=== PATIENT | male | born 1945 | race African-American/Black ===

== ENCOUNTER 2017-06-02 17:05 | Observation (INO) | payer MEDICARE, MEDICAID ==
[2017-06-02] MEDS ORDERED: NORMAL SALINE 1000 ML 1,000 ML IV ONE (17:54)
--- NOTE | 2017-06-02 18:31 | RADIOLOGY REPORT (SQ) ---
EXAM DESCRIPTION: CHEST SINGLE VIEW COMPLETED DATE/TIME: 06/02/2017 6:23 pm REASON FOR STUDY: syncope COMPARISON: None. EXAM PARAMETERS: NUMBER OF VIEWS: One view. TECHNIQUE: Single frontal radiographic view of the chest acquired. RADIATION DOSE: NA LIMITATIONS: None. FINDINGS: LUNGS AND PLEURA: No opacities, masses or pneumothorax. No pleural effusion. MEDIASTINUM AND HILAR STRUCTURES: No masses. Contour normal. HEART AND VASCULAR STRUCTURES: Heart normal in size. Normal vasculature. BONES: No acute findings. HARDWARE: None in the chest. OTHER: No other significant finding. IMPRESSION: NO ACUTE RADIOGRAPHIC FINDING IN THE CHEST. TECHNICAL DOCUMENTATION: JOB ID: [id number]
--- NOTE | 2017-06-02 18:39 | ER Document Report ---
ED Syncope and Near Syncope - General Mode of Arrival: Ambulatory Information source: Patient <ALEXANDEROMER - Last Filed: 06/02/17 18:35> <KATIA LÓPEZ - Last Filed: 06/02/17 21:12> - General Chief Complaint: Syncope Stated Complaint: FAINTING Time Seen by Provider: 06/02/17 17:37 Notes: Patient is a 71-year-old male who presents to the emergency department today secondary to a syncopal episode that occurred prior to arrival. According to family at bedside, the patient was sitting on his scooter waiting for their children to get off the bus when the patient "grabbed his chest, his eyes rolled back, and he went limp". Patient denies any chest pain currently or shortness of breath. (OMER MUNOZ) - Related Data Allergies/Adverse Reactions: No Known Allergies Allergy (Unverified 06/02/17 17:22) Past Medical History - General Information source: [facility] Records - Social History Smoking Status: Never Smoker Cigarette use (# per day): No Chew tobacco use (# tins/day): No Frequency of alcohol use: None Drug Abuse: None Lives with: Family Family History: Reviewed & Not Pertinent - Past Medical History Cardiac Medical History: Reports: Hx Congestive Heart Failure, Hx Hypercholesterolemia, Hx Hypertension Surgical Hx: Negative <OMER MUNOZ - Last Filed: 06/02/17 18:35> Review of Systems - Review of Systems Constitutional: No symptoms reported EENT: No symptoms reported Cardiovascular: See HPI, Syncope. denies: Chest pain Respiratory: denies: Short of breath Gastrointestinal: No symptoms reported Genitourinary: No symptoms reported Male Genitourinary: No symptoms reported Musculoskeletal: No symptoms reported Skin: No symptoms reported Hematologic/Lymphatic: No symptoms reported Neurological/Psychological: No symptoms reported -: Yes All other systems reviewed and negative <OMER MUNOZ - Last Filed: 06/02/17 18:35> Physical Exam - Vital signs Interpretation: Hypotensive - General General appearance: Appears well, Alert In distress: None - HEENT Head: Normocephalic, Atraumatic Eyes: Normal Pupils: PERRL Mucous membranes: Dry - Respiratory Respiratory status: No respiratory distress Chest status: Nontender Breath sounds: Normal Chest palpation: Normal - Cardiovascular Rhythm: Regular Heart sounds: Normal auscultation Murmur: No - Abdominal Inspection: Normal Distension: No distension Bowel sounds: Normal Tenderness: Nontender Organomegaly: No organomegaly - Back Back: Normal, Nontender - Extremities General upper extremity: Normal inspection, Nontender, Normal color, Normal ROM , Normal temperature General lower extremity: Normal inspection, Nontender, Normal color, Normal ROM , Normal temperature, Normal weight bearing. No: Miranda's sign - Neurological Neuro grossly intact: Yes Cognition: Normal Orientation: AAOx4 [place] Coma Scale Eye Opening: Spontaneous [place] Coma Scale Verbal: Oriented [place] Coma Scale Motor: Obeys Commands Brian Coma Scale Total: 15 Speech: Normal Motor strength normal: LUE, RUE, LLE, RLE Sensory: Normal - Psychological Associated symptoms: Normal affect, Normal mood - Skin Skin Temperature: Warm Skin Moisture: Dry Skin Color: Normal <KATIA LÓPEZ - Last Filed: 06/02/17 21:12> - Vital signs Vitals: Temp Pulse Resp BP Pulse Ox 98.7 F 61 18 108/48 L 98 06/02/17 17:21 06/02/17 17:21 06/02/17 17:21 06/02/17 17:21 06/02/17 17:21 Course <OMER MUNOZ - Last Filed: 06/02/17 18:35> - Laboratory Result Diagrams: 06/02/17 19:40 06/02/17 19:40 - Diagnostic Test Radiology reviewed: Reports reviewed - EKG Interpretation by Me EKG shows normal: Sinus rhythm Rate: Normal Rhythm: NSR <KATIA LÓPEZ - Last Filed: 06/02/17 21:12> - Re-evaluation Re-evalutation: 06/02/17 21:11 Patient is a 71-year-old male who presents after an episode of syncope at home. Patient was describing his chest and then passing out. Patient has no complaints at all. No pain anywhere. Feels better at this time. Given account witnesses, patient will be admitted for syncope workup. Patient has been discussed with the hospitalist service. Stable at time of admission. No complaints at this time. (KATIA LÓPEZ) - Vital Signs Vital signs: Temp Pulse Resp BP Pulse Ox 98.7 F 61 18 108/48 L 98 06/02/17 17:21 06/02/17 17:21 06/02/17 17:21 06/02/17 17:21 06/02/17 17:21 - Laboratory Laboratory results interpreted by me: 06/02/17 06/02/17 19:40 19:40 RDW 15.6 H BUN 22 H Creatinine 1.37 H Est GFR (Non-Af Amer) 51 L Discharge <OMER MUNOZ - Last Filed: 06/02/17 18:35> - Discharge Admitting Provider: Hospitalist Unit Admitted: Telemetry <KATIA LÓPEZ - Last Filed: 06/02/17 21:12> - Discharge Clinical Impression: Syncope and collapse Condition: Stable Disposition: ADMITTED OBSERVATION Scribe Attestation: 06/02/17 21:11 I personally performed the services described in the documentation, reviewed and edited the documentation which was dictated to the scribe in my presence, and it accurately records my words and actions. (KATIA LÓPEZ) Scribe Documentation - Scribe Written by Scribe:: Hadley Harper, 06/02/2017 1838 acting as scribe for :: Cindy <OMER MUNOZ - Last Filed: 06/02/17 18:35>
[2017-06-02 19:58] LABS: ABSOLUTE BASOPHILS # (AUTO) 0.1 10^3/uL (0.0-0.2); ABSOLUTE EOSINOPHILS # (AUTO) 0.2 10^3/uL (0.0-0.6); ABSOLUTE LYMPHOCYTES (AUTO) 2.2 10^3/uL (0.5-4.7); ABSOLUTE MONOCYTES (AUTO) 0.5 10^3/uL (0.1-1.4); ABSOLUTE NEUT (AUTO) 6.9 10^3/uL (1.7-8.2); BASOPHILS % (AUTO) 0.8 % (0-2); HEMATOCRIT 43.5 % (37.9-51.0); HEMOGLOBIN 14.9 g/dL (13.5-17.0); HGB HCT DIFFERENCE 1.2; LYMPHOCYTES % (AUTO) 22.6 % (13-45); MEAN CORPUSCULAR HEMOGLOBIN 29.9 pg (27.0-33.4); MEAN CORPUSCULAR HGB CONC 34.2 g/dL (32.0-36.0); MEAN CORPUSCULAR VOLUME 87 fl (80-97); MONOCYTES % (AUTO) 4.9 % (3-13); RED BLOOD COUNT 4.97 10^6/uL (4.35-5.55); RED CELL DISTRIBUTION WIDTH 15.6 % (11.5-14.0); SEGMENTED NEUTROPHILS % (AUTO) 69.7 % (42-78); WHITE BLOOD COUNT 9.8 10^3/uL (4.0-10.5)
[2017-06-02 20:19] LABS: ALANINE AMINOTRANSFERASE 29 U/L (21-72); ALBUMIN 3.7 g/dL (3.5-5.0); ALKALINE PHOSPHATASE 86 U/L (38-126); ANION GAP 13 (5-19); ASPARTATE AMINO TRANSFERASE 21 U/L (17-59); BILIRUBIN,DIRECT 0.4 mg/dL (0.0-0.4); BILIRUBIN,TOTAL 0.5 mg/dL (0.2-1.3); BLOOD UREA NITROGEN 22 mg/dL (7-20); CALCIUM 9.8 mg/dL (8.4-10.2); CARBON DIOXIDE 23 mmol/L (22-30); CHLORIDE 107 mmol/L (98-107); CREATINE KINASE 132 U/L (55-170); CREATININE RESULT 1.37 mg/dL (0.52-1.25); GLUCOSE 83 mg/dL (75-110); POTASSIUM 4.6 mmol/L (3.6-5.0); SODIUM 142.5 mmol/L (137-145); TOTAL PROTEIN 7.4 g/dL (6.3-8.2)
[2017-06-02 20:31] LABS: CREATINE KINASE MB 1.57 ng/mL (<4.55); TROPONIN I 0.019 ng/mL
[2017-06-02 21:08] LABS: APPEARANCE,URINE CLEAR; BILIRUBIN,URINE NEGATIVE (NEGATIVE); GLUCOSE, URINE NEGATIVE (NEGATIVE); KETONES,URINE NEGATIVE (NEGATIVE); LEUKOCYTE ESTERASE,URINE NEGATIVE (NEGATIVE); NITRITE,URINE NEGATIVE (NEGATIVE); PROTEIN,URINE NEGATIVE (NEGATIVE); URINE SPECIFIC GRAVITY 1.015; UROBILINOGEN,URINE NEGATIVE mg/dL (<2.0)
[2017-06-02] MEDS ORDERED: PROMETHAZINE HCL 25 MG TABLET PO PRN (21:14)
[2017-06-02] MEDS ORDERED: ACETAMINOPHEN 325 MG TABLET PO PRN (21:14)
[2017-06-02 23:03] LABS: ADD ON TESTING BLD IN LAB ACKNOWLEDGE
[2017-06-02 23:23] LABS: MAGNESIUM 2.1 mg/dL (1.6-2.3)
[2017-06-02 23:24] LABS: ALCOHOL < 10 mg/dL (NONE DETECTED)
[2017-06-03] MEDS ORDERED: DEXTROSE 50%-WATER 25 GM/50 ML DISP.SYRIN IV PRN ×2 (04:43)
[2017-06-03] MEDS ORDERED: GLUCAGON,HUMAN RECOMB 1 MG INJ IM PRN (04:43)
[2017-06-03] MEDS ORDERED: INSULIN LISPRO 100 UNIT/ML 3 ML VIAL SUBCUT PRN (04:43)
[2017-06-03] MEDS ORDERED: DEXTROSE 40% GEL 15 GM TUBE PO PRN ×2 (04:43)
[2017-06-03] MEDS ORDERED: NORMAL SALINE 1000 ML 1,000 ML IV PRN (04:49)
--- NOTE | 2017-06-03 05:05 | PDOC H&P ---
History of Present Illness Admission Date/PCP: 06/02/17 21:34 Primary care provider: Uncertain; patient just saw the provider 2 or 3 days ago for the first time. Patient complains of: Syncope History of Present Illness: RONI MANN is a 71 year old morbidly obese -E[place]ian male, with underlying hypertension, obstructive sleep apnea, without home O2, with pressure setting of 14, congestive heart failure, uncertain if systolic and/or diastolic, hyperlipidemia, type 2 diabetes mellitus, mild reflux, arthritis, mild depression, without suicidal or homicidal ideation, and underlying prostate cancer, currently being followed with serial PSA who presents to the emergency room for evaluation of first syncopal episode. Patient has been discussed with emergency room physician who evaluated the patient. Was sitting on his scooter outside waiting for grandchild to get off the bus. Grabbed his chest, eyes rolled back, and he "went limp." No fecal or urinary incontinence. No biting of the tongue. No known seizure disorder. Witnessed by 1 of his daughters; another daughter is at his bedside, with patient's approval. The witnessing daughter is not present. No prior such episodes. Prior to the above episode, he was in his usual state of health, with no complaints of nausea vomiting, fever or chills, diarrhea or dysuria. No headache chest or abdominal pain. Feels back to his usual self at the present time also. No recent change in his medications. Long-term noncompliance with his medications. Denies use of alcohol tobacco or illicit drugs. Dictation via voice recognition software. Laboratory results are listed in [facility] and are reviewed. No prior labs available for comparison. X-ray summary results are listed below, with full report(s) reviewed. EKG reviewed. No old EKG available for comparison. Social history/personal habits: . Lives with daughter. Unemployed. Personal habits as noted above. No known drug allergies. Home medications initially autopopulated into [facility] [employer] may not accurately reflect patient's true medications, dosages, and/or frequencies. technical services representative to reconcile medications. Unfortunately, patient not certain of all medications/dosages/frequencies. REVIEW OF SYSTEMS: Constitutional: No fever or chills. Eyes: Wears glasses. ENT: No swallowing problems or complaints. Denies hearing loss. Pulmonary: No current complaints. Cardiovascular: See history and present illness. Gastrointestinal: No current complaints, including nausea or vomiting. Skin: No current complaints, including rashes. Hematologic: Denies easy bruising. Neurologic: See history and present illness. Musculoskeletal: Joint pain from arthritis. Psychiatric: Mild occasional depression. Endocrine: No current complaints, including polyuria. Genitourinary: No current complaints, including dysuria. PHYSICAL EXAMINATION: 5 feet 9-1/2 inches tall. 125.6 kg. BMI 40.3 kg/m. Temperature 97.5. Pulse 64 and regular. Blood pressure 145/89. Respirations are 16 and unlabored. 96 % saturation on room air. Morbidly obese somewhat chronically ill-appearing -[place]ian male who nevertheless appears perhaps a bit younger than his stated age. Initially asleep, but awakens easily. Pleasant alert and cooperative. Mildly anxious, without agitation. Daughter Alessandra Mann is present at his side; patient approves. Skin is warm and dry. No grossly obvious evidence of rash in areas of skin examined. No subcutaneous nodules palpated. ENT: Hearing grossly normal to normal conversation. Tongue midline on protrusion pink and slightly moist. Poor dentition. Eyes: No scleral icterus. Pupils equal and reactive to light at 4 mm. [place] conjunctivae. Neck is supple and nontender to gentle active range of motion and palpation. Midline trachea. No palpable thyroid nodule mass enlargement or tenderness. Lymphatic: No palpable cervical or clavicular nodes. Neck and lymphatic exams limited by patient body habitus. Psychiatric: Reasonable insight into acute and chronic medical issues. Oriented to time location and why here. Lungs: Auscultation reveals clear and equal breath sounds bilaterally. No use of accessory respiratory muscles. Cardiovascular: Heart regular rate and rhythm, without gallop murmur or rub. No carotid or abdominal aortic bruits. No ankle or pedal edema. Palpable dorsalis pedis pulses. Abdomen:soft obese nontender with positive bowel sounds. Unable to adequately evaluate abdomen for masses or organomegaly due to body habitus. Extremities: Feet are warm and dry. No calf tenderness to compression. No grossly obvious visual evidence of calf swelling. Gentle manipulation of lower extremities fails to reveal any obvious evidence of injury or instability to knees hips or ankles. Neurologic: Moves upper extremities grossly normally. Patellar reflexes absent. Absent Babinski. Light touch is intact at feet. Dorsiflexion and plantarflexion of feet 5 / 5 and symmetric. Past Medical History Cardiac Medical History: Reports: Congestive Heart Failure, Hyperlipidema, Hypertension Denies: Atrial Fibrillation, DVT, Pulmonary Embolism Pulmonary Medical History: Reports: Sleep Apnea Denies: Asthma, Chronic Obstructive Pulmonary Disease (COPD) Neurological Medical History: Denies: Hemorrhagic CVA, Ischemic CVA, Seizures Endocrine Medical History: Reports: Diabetes Mellitus Type 2 Denies: Diabetes Mellitus Type 1, Hyperthyroidism, Hypothyroidism Malignancy Medical History: Reports: Other - Prostate GI Medical History: Reports: Gastroesophageal Reflux Disease Denies: Hepatitis, Peptic Ulcer Disease Musculoskeltal Medical History: Reports: Arthritis Psychiatric Medical History: Reports: Depression Denies: Alcohol Dependency, General Anxiety Disorder, Substance Abuse, Tobacco Dependency Infectious Medical History: Denies: Hepatitis B, Hepatitis C Past Surgical History Past Surgical History: Reports: Orthopedic Surgery - ankle, elbow Social History Information Source: Patient, Emergency Med Personnel, [facility] Records Lives with: Family Smoking Status: Unknown if Ever Smoked Frequency of Alcohol Use: None Hx Recreational Drug Use: No Drugs: None Hx Prescription Drug Abuse: No - Advance Directive Resuscitation Status: Full Code Surrogate healthcare decision maker:: David Acosta Family History Family History: Reviewed & Not Pertinent Parental Family History Reviewed: Yes - Father of ruptured brain aneurysm; mother after a stroke Children Family History Reviewed: Yes - Daughter with thyroid disease. Sibling(s) Family History Reviewed.: Yes - Half-sister Medication/Allergy Home Medications: Aspirin [Ecotrin] 81 mg PO DAILY 06/03/17 Carvedilol [Coreg 25 mg Tablet] 25 mg PO DAILY 06/03/17 Citalopram Hydrobromide [Celexa 40 mg Tablet] 40 mg PO DAILY 06/03/17 Donepezil HCl [Aricept 5 mg Tablet] 5 mg PO DAILY 06/03/17 Hydralazine HCl [Apresoline 50 mg Tablet] 50 mg PO TID 06/03/17 Hydrochlorothiazide [Hydrodiuril 25 mg Tablet] 25 mg PO QAM 06/03/17 Isosorbide Dinitrate [Isordil Titradose 20 Mg Tablet] 20 mg PO TID 06/03/17 Lovastatin [Altoprev] 40 mg PO DAILY 06/03/17 [place]-3 Fatty Acids/Fish Oil [Fish Oil 1,000 mg Capsule] 1 cap PO Q8 06/03/17 Omeprazole 20 mg PO DAILY 06/03/17 Spironolactone [Aldactone 25 mg Tablet] 25 mg PO BID 06/03/17 Tamsulosin HCl [Flomax 0.4 mg Cap.sr] 0.4 mg PO QHS 06/03/17 Allergies/Adverse Reactions: No Known Allergies Allergy (Unverified 06/02/17 17:22) Physical Exam Vital Signs: Temp Pulse Resp BP Pulse Ox 97.5 F 64 16 145/89 H 98 06/03/17 01:06 06/03/17 01:06 06/03/17 01:06 06/03/17 01:06 06/03/17 01:06 Intake & Output 06/02/17 06/03/17 06/04/17 00:59 00:59 00:59 Weight 125.6 kg Results Laboratory Results: 06/02/17 06/02/17 06/02/17 22:50 22:50 22:50 Lactic Acid 0.8 Magnesium 2.1 TSH 1.31 06/03/17 01:18 Troponin I 0.013 Impressions: Chest X-Ray 06/02/17 00:00 IMPRESSION: NO ACUTE RADIOGRAPHIC FINDING IN THE CHEST. Assessment & Plan - Diagnosis (1) Syncope and collapse Is this a current diagnosis for this admission?: Yes Plan: Uncertain etiology at this point, although patient does state his p.o. intake has been less than normal over the last 2 days. 1 L of IV fluid at 100/h. Serial troponins. Orthostatic vital signs every 4 hours while awake, starting at 7 AM this morning. I have strongly encouraged patient not to get out of bed without notifying staff , to avoid a fall with injury. Knee high SCDs for DVT prophylaxis, along with subcutaneous heparin. Impression and plans were discussed with patient and daughter, both of whom concur. Time spent in evaluation and management of patient: 72 minutes. (2) CHF (congestive heart failure) Qualifiers: Congestive heart failure type: unspecified congestive heart failure type Congestive heart failure chronicity: chronic Qualified Code(s): I50.9 - Heart failure, unspecified Is this a current diagnosis for this admission?: Yes Plan: Resume home medications as appropriate once these have been determined and reviewed. (3) Diabetes mellitus type 2 in obese Is this a current diagnosis for this admission?: Yes Plan: Diabetic cardiac diet. Accu-Cheks with appropriate sliding scale coverage. Resume home medications as appropriate once these have been determined and reviewed. (4) HLD (hyperlipidemia) Qualifiers: Hyperlipidemia type: unspecified Qualified Code(s): E78.5 - Hyperlipidemia , unspecified Is this a current diagnosis for this admission?: Yes Plan: Lipid panel pending. Resume home medications as appropriate once these have been determined and reviewed. (5) HTN (hypertension) Qualifiers: Hypertension type: essential hypertension Qualified Code(s): I10 - Essential (primary) hypertension Is this a current diagnosis for this admission?: Yes Plan: Resume home medications as appropriate once these have been determined and reviewed. (6) DEIDRE (obstructive sleep apnea) Is this a current diagnosis for this admission?: Yes Plan: CPAP nightly - Time Time Spent: Greater than 70 Minutes Medications reviewed and adjusted accordingly: No - Patient uncertain of medications. Anticipated discharge: Home Within: within 24 hours
[2017-06-03 08:32] LABS: ANION GAP 11 (5-19); BLOOD UREA NITROGEN 20 mg/dL (7-20); CALCIUM 9.8 mg/dL (8.4-10.2); CARBON DIOXIDE 29 mmol/L (22-30); CHLORIDE 104 mmol/L (98-107); CHOLESTEROL 174.57 mg/dL (0-200); Direct HDL 37 mg/dL (>40); GLUCOSE 76 mg/dL (75-110); POTASSIUM 4.1 mmol/L (3.6-5.0); SODIUM 143.9 mmol/L (137-145); TRIGLYCERIDES 128 mg/dL (<150)
[2017-06-03 08:43] LABS: DIRECT LDL 100 mg/dL (<100)
[2017-06-03] MEDS ORDERED: PROMETHAZINE HCL 25 MG TABLET PO PRN (10:00)
[2017-06-03] MEDS: HEPARIN SOD (PORCINE) 5,000 UNIT/ML 1 ML SYRINGE SUBCUT SCH ×3 (12:34→22:30)
[2017-06-03] MEDS: DOCUSATE SODIUM 100 MG CAPSULE PO SCH ×2 (12:34→17:24)
--- NOTE | 2017-06-03 14:41 | RADIOLOGY REPORT (SQ) ---
EXAM DESCRIPTION: CAROTID DOPPLER COMPLETED DATE/TIME: 06/03/2017 2:21 pm REASON FOR STUDY: Syncope, dizziness E78.5 HYPERLIPIDEMIA, UNSPECIFIED R55 SYNCOPE AND COLLAPSE COMPARISON: None. TECHNIQUE: Grayscale ultrasound, Doppler velocity and spectra, and color Doppler images acquired of the extra-cranial carotid and vertebral arteries. Images stored on PACS. LIMITATIONS: Right internal carotid and external carotid not able to be seen. FINDINGS: RIGHT CAROTID CCA Velocities: Within normal limits. ICA Velocities Peak systolic not seen m/s. End diastolic not seen m/s. Proximal ICA/CCA peak systolic ratio not applicable. Normal waveforms in the common carotid artery. LEFT CAROTID CCA Velocities: 85 cm/s ICA Velocities Peak systolic 70cm/s. End diastolic 26cm/s. Proximal ICA/CCA peak systolic ratio 0.84. Spectra normal. No significant plaque. VERTEBRAL ARTERIES: Antegrade flow. Normal waveforms. SUBCLAVIAN ARTERIES: No finding. OTHER: No other significant finding. IMPRESSION: No hemodynamically significant stenosis. The study is limited by inability to image rig ht internal carotid external carotid arteries. Consider MRA or CTA. COMMENT: Quality ID #[id number]: Velocity criteria are extrapolated from the diameter data as defined by t he Society of Radiologists in Ultrasound Consensus Conference. Radiology 2003: 229; 340-346. TECHNICAL DOCUMENTATION: JOB ID: [id number] [employer]- All Rights Reserved
[2017-06-03] MEDS: HYDRALAZINE HCL 50 MG TABLET PO SCH (17:18)
[2017-06-03] MEDS: SPIRONOLACTONE 25 MG TABLET PO SCH (17:18)
[2017-06-03] MEDS: ISOSORBIDE DINITRATE 20 MG TABLET PO SCH (17:48)
--- NOTE | 2017-06-03 18:58 | XCELERA REPORT ---
[address] [address] Transthoracic Echocardiogram Report Name: RONI SEXTON Age: 71 yrs Gender: Male : 1945 Patient Status: Inpatient Patient Location: [address] [place] [address] Study Date: 06/03/2017 12:59 PM Height: 69 in Weight: 276 lb BSA: 2.4 m2 Procedure: A complete two-dimensional transthoracic echocardiogram was performed (2D, M-mode, spectral and color flow Doppler). The study was technically difficult with many images being suboptimal in quality. Reason For Study: syncope, hypertensive heart disease Ordering Physician: RUBY BERTRAND Performed By: Catrina Mays Interpretation Summary The left ventricular ejection fraction is normal. There is mild concentric left ventricular hypertrophy. Doppler measurements suggest pseudonormalized left ventricular relaxation, which is associated with grade II/IV or mild to moderate diastolic dysfunction The left ventricle is grossly normal size. Wall motion cannot be accurately commented on, but no definite regional wall motion abnormalities noted. The right ventricular systolic function is normal. The left atrium is mildly dilated. The right atrium is mildly dilated. There is a trace to mild amount of mitral regurgitation There is no mitral valve stenosis. There is a mild amount of aortic regurgitation There is no aortic valve stenosis There is a trace or physiologic amount of tricuspid regurgitation Tricuspid regurgitation jet envelope not well defined to measure RV systolic pressure accurately. The aortic root is not well visualized but is probably normal size. The inferior vena cava was not well visualized There is no pericardial effusion. MMode/2D Measurements & Calculations RVDd: 2.7 cm LVIDd: 4.5 cm FS: 35.9 % Ao root diam: 2.8 cm IVSd: 2.1 cm LVIDs: 2.9 cm EDV(Teich): 92.3 ml LVPWd: 1.6 cm ESV(Teich): 31.7 ml Ao root area: 6.4 cm2 EF(Teich): 65.6 % LA dimension: 3.9 cm Doppler Measurements & Calculations MV E max nadeem: MV P1/2t max nadeem: Ao V2 max: AI max nadeem: 66.1 cm/sec 67.1 cm/sec 128.6 cm/sec 303.2 cm/sec MV A max nadeem: MV P1/2t: 93.9 msec Ao max PG: AI max P.2 cm/sec 6.6 mmHg 36.8 mmHg MV E/A: 0.68 MVA(P1/2t): 2.3 cm2 AI dec slope: MV dec slope: 209.5 cm/sec2 114.3 cm/sec2 AI P1/2t: 776.9 msec LV V1 max PG: PA V2 max: 2.8 mmHg 73.1 cm/sec LV V1 max: PA max P.1 mmHg 83.4 cm/sec Left Ventricle The left ventricle is grossly normal size. There is mild concentric left ventricular hypertrophy. The left ventricular ejection fraction is normal. Doppler measurements suggest pseudonormalized left ventricular relaxation, which is associated with grade II/IV or mild to moderate diastolic dysfunction. Wall motion cannot be accurately commented on, but no definite regional wall motion abnormalities noted. Right Ventricle The right ventricle is grossly normal size. There is normal right ventricular wall thickness. The right ventricular systolic function is normal. Atria The right atrium is mildly dilated. The left atrium is mildly dilated. Interarterial septum not well visualized and not well dopplered. Cannot comment on ASD/PFO presence. Mitral Valve The mitral valve leaflets are sclerotic, but show no functional abnormalities. There is no mitral valve stenosis. There is a trace to mild amount of mitral regurgitation. Aortic Valve The aortic valve is not well visualized secondary to technical limitations. There is no aortic valve stenosis. There is a mild amount of aortic regurgitation. Tricuspid Valve The tricuspid valve is not well visualized secondary to technical limitations. There is no tricuspid stenosis. There is a trace or physiologic amount of tricuspid regurgitation. Tricuspid regurgitation jet envelope not well defined to measure RV systolic pressure accurately. Pulmonic Valve The pulmonic valve is not well visualized. Great Vessels The aortic root is not well visualized but is probably normal size. The inferior vena cava was not well visualized. Effusions There is no pericardial effusion. : RUBY BERTRAND > Kerwin Escobedo
--- NOTE | 2017-06-03 20:22 | EKG REPORT ---
SEVERITY:- ABNORMAL ECG - SINUS RHYTHM FIRST DEGREE AV BLOCK NONSPECIFIC T ABNORMALITIES, LATERAL LEADS : Confirmed by: Florencia Alatorre MD 03-Jun-2017 20:22:22
--- NOTE | 2017-06-03 21:25 | PDOC CONSULTATION ---
Consultation Consult Date: 06/03/17 Attending physician:: RUBY BERTRAND Consult reason:: Syncope History of Present Illness Admission Date/PCP: 06/03/17 04:47 Patient complains of: Syncope History of Present Illness: RONI SEXTON is a 71 year old morbidly obese -[place] male, with underlying hypertension, obstructive sleep apnea, without home O2, with pressure setting of 14, congestive heart failure, uncertain if systolic and/or diastolic, hyperlipidemia, type 2 diabetes mellitus, mild reflux, arthritis, mild depression, without suicidal or homicidal ideation, and underlying prostate cancer, currently being followed with serial PSA who presents to the emergency room for evaluation of first syncopal episode. Patient has been discussed with emergency room physician who evaluated the patient. Was sitting on his scooter outside waiting for grandchild to get off the bus. Grabbed his chest, eyes rolled back, and he "went limp." No fecal or urinary incontinence. No biting of the tongue. No known seizure disorder. Witnessed by 1 of his daughters; another daughter is at his bedside, with patient's approval. The witnessing daughter is not present. No prior such episodes. Prior to the above episode, he was in his usual state of health, with no complaints of nausea vomiting, fever or chills, diarrhea or dysuria. No headache chest or abdominal pain. Feels back to his usual self at the present time also. This history obtained by Dr. Sullivan was reviewed and confirmed. Patient's son-in-law at bedside this evening when I interviewed the patient. He did witness the episode. He basically confirmed what he is already mentioned. He noted that patient was diaphoretic after the episode. There was no loss of bladder or bowel control or no tongue biting. Mild shaking of upper extremity was noted but no overt seizures were noted. He claims that patient color was unchanged. He did not take a pulse or blood pressure at that time. Emergency medical personnel on arrival said his blood sugar was 115 and his blood pressure was in the 80s. Patient was subsequently transported to the emergency room and admitted. Patient rhythm strip shows 4 beats of idioventricular rhythm but otherwise maintaining sinus rhythm. Past Medical History Cardiac Medical History: Reports: Congestive Heart Failure, Hyperlipidema, Hypertension Denies: Atrial Fibrillation, DVT, Pulmonary Embolism Pulmonary Medical History: Reports: Sleep Apnea Denies: Asthma, Chronic Obstructive Pulmonary Disease (COPD) Neurological Medical History: Denies: Hemorrhagic CVA, Ischemic CVA, Seizures Endocrine Medical History: Reports: Diabetes Mellitus Type 2 Denies: Diabetes Mellitus Type 1, Hyperthyroidism, Hypothyroidism Malignancy Medical History: Reports: Other - Prostate GI Medical History: Reports: Gastroesophageal Reflux Disease Denies: Hepatitis, Peptic Ulcer Disease Musculoskeltal Medical History: Reports: Arthritis Psychiatric Medical History: Reports: Depression Denies: Alcohol Dependency, General Anxiety Disorder, Substance Abuse, Tobacco Dependency Infectious Medical History: Denies: Hepatitis B, Hepatitis C Past Surgical History Past Surgical History: Reports: Orthopedic Surgery - ankle, elbow Social History Information Source: Patient Lives with: Family Smoking Status: Unknown if Ever Smoked Frequency of Alcohol Use: None Hx Recreational Drug Use: No Drugs: None Hx Prescription Drug Abuse: No - Advance Directive Resuscitation Status: Full Code Surrogate healthcare decision maker:: Patient's daughter is the surrogate decision-maker Family History Family History: Hypertension Parental Family History Reviewed: Yes Children Family History Reviewed: Yes Sibling(s) Family History Reviewed.: Yes Medication/Allergy Home Medications: Aspirin [Ecotrin] 81 mg PO DAILY 06/03/17 Carvedilol [Coreg 25 mg Tablet] 25 mg PO DAILY 06/03/17 Citalopram Hydrobromide [Celexa 40 mg Tablet] 40 mg PO DAILY 06/03/17 Donepezil HCl [Aricept 5 mg Tablet] 5 mg PO DAILY 06/03/17 Hydralazine HCl [Apresoline 50 mg Tablet] 50 mg PO TID 06/03/17 Hydrochlorothiazide [Hydrodiuril 25 mg Tablet] 25 mg PO QAM 06/03/17 Isosorbide Dinitrate [Isordil Titradose 20 Mg Tablet] 20 mg PO TID 06/03/17 Lovastatin [Altoprev] 40 mg PO DAILY 06/03/17 Lena-3 Fatty Acids/Fish Oil [Fish Oil 1,000 mg Capsule] 1 cap PO Q8 06/03/17 Omeprazole 20 mg PO DAILY 06/03/17 Spironolactone [Aldactone 25 mg Tablet] 25 mg PO BID 06/03/17 Tamsulosin HCl [Flomax 0.4 mg Cap.sr] 0.4 mg PO QHS 06/03/17 Allergies/Adverse Reactions: No Known Allergies Allergy (Unverified 06/02/17 17:22) Review of Systems Review of Systems: Please see history of present illness and past medical history as wall. Constitutional: No fever or chills reported. Head : No recent chronic headaches, recent head injury. Eyes: No recent eye pain, diplopia, redness, discharge, acute visual changes. Ears: No recent chronic ear pain, acute hearing loss, ear discharge. Oral cavity: No recent ulcerations, bleeding, oral cavity discomfort. Neck: No recent acute neck pain reported. Hematologic: No recent easy bruising or bleeding or hematologic malignancy reported. Lymphatic: No recent lymphatic malignancy, chronic lymphadenopathy reported yet Cardiovascular system review: See history of present illness. Respiratory system review: No recent chronic cough, hemoptysis, blood clots in the lungs reported. Mild Shortness of breath on exertion Gastrointestinal system review: Negative for any recent acute or chronic abdominal pain, hematemesis, melena, recent change in bowel habits. Genitourinary system review: No recent acute or chronic hematuria, flank pain, UTI etc. reported. Skin system review: Negative for any recent abnormal bruising, no rash, no pruritus reported. Neurologic: No prior history of strokes, mini strokes, seizure disorder. Patient presented with syncope but no prior seizure disorder. Psychologic: No history of major psychosis or major depression reported. Musculoskeletal: Minor aches and pains reported. No acute joint swelling reported. Patient is ambulatory but uses a motorized scooter because of joint problems. Endocrine: No recent polyuria, polydipsia, recent heat or cold intolerance. Physical Exam Vital Signs: Temp Pulse Resp BP Pulse Ox 98.8 F 86 19 154/114 H 100 06/03/17 15:19 06/03/17 15:22 06/03/17 15:22 06/03/17 15:22 06/03/17 15:22 Intake & Output 06/02/17 06/03/17 06/04/17 06:59 06:59 06:59 Intake Total 1050 2040 Output Total 1400 1880 Balance -350 160 Weight 125.6 kg Exam: GENERAL: well-nourished and in no acute distress. Alert and oriented x3 HEAD: Atraumatic, normocephalic. EYES: Pupils equal round and reactive to light, extraocular movements intact, sclera anicteric, conjunctiva are normal. ENT: TMs normal, nares patent, oropharynx clear without exudates. Moist mucous membranes. No oral ulcerations or bleeding gums noted NECK: supple without lymphadenopathy. Trachea is central. No cervical or axillary lymphadenopathy noted. Carotids are 2+, JVD WNL LUNGS: Respiration seems nonlabored, no significant accessory muscle action noted. Breath sounds clear to auscultation bilaterally and equal noted. No wheezes rales or rhonchi noted. No significant dullness noted on percussion. CHEST: Palpation of the chest wall shows no significant chest wall tenderness. No other significant abnormalities noted. 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 ABDOMEN: Soft, no significant tenderness appreciated, normoactive bowel sounds. No guarding, no rebound. No rigidity noted . No masses appreciated. EXTREMITIES: Pedal pulses are 1-2+, no calf tenderness noted. No clubbing or cyanosis.trace to 1+ pedal edema noted NEUROLOGICAL: Focused neurological exam showed no significant neurologic deficit. Normal speech, no focal weakness appreciated. PSYCH: Normal mood, normal affect. Judgment and insight within normal limits. SKIN: No significant ecchymosis, rash, ulcerations or signs of pruritus noted. MUSCULOSKELETAL EXAM: No significant joint swelling noted. Results Laboratory Results: 06/03/17 07:48 06/03/17 07:48 Sodium 143.9 Potassium 4.1 Chloride 104 Carbon Dioxide 29 Anion Gap 11 BUN 20 Creatinine 1.30 H Est GFR ( Amer) > 60 Est GFR (Non-Af Amer) 54 L Glucose 76 Calcium 9.8 Triglycerides 128 Cholesterol 174.57 LDL Cholesterol Direct 100 VLDL Cholesterol 26.0 HDL Cholesterol 37 L 06/03/17 06/03/17 07:48 14:23 Troponin I 0.028 0.015 EKG Comments: Sinus rhythm, minor nonspecific T-wave changes noted. Impressions: Chest X-Ray 06/02/17 00:00 IMPRESSION: NO ACUTE RADIOGRAPHIC FINDING IN THE CHEST. Carotid Doppler Study 06/03/17 00:00 IMPRESSION: No hemodynamically significant stenosis. The study is limited by inability to image right internal carotid external carotid arteries. Consider MRA or CTA. Assessment & Plan - Diagnosis (1) Syncope and collapse Is this a current diagnosis for this admission?: Yes (2) Diabetes mellitus type 2 in obese Is this a current diagnosis for this admission?: Yes (3) HLD (hyperlipidemia) Qualifiers: Hyperlipidemia type: unspecified Qualified Code(s): E78.5 - Hyperlipidemia , unspecified Is this a current diagnosis for this admission?: Yes (4) HTN (hypertension) Qualifiers: Hypertension type: essential hypertension Qualified Code(s): I10 - Essential (primary) hypertension Is this a current diagnosis for this admission?: Yes (6) DEIDRE (obstructive sleep apnea) Is this a current diagnosis for this admission?: Yes (7) Dyspnea Qualifiers: Dyspnea type: other forms of dyspnea Qualified Code(s): R06.09 - Other forms of dyspnea Is this a current diagnosis for this admission?: Yes - Notes Notes: 2D echocardiogram reviewed. Will schedule patient for a nuclear stress test. Patient will benefit from prolonged monitoring as an outpatient. Recommend orthostatic blood pressure measurement. Recommend EEG. Consider obtaining glycohemoglobin thyroid function studies. Syncope and collapse: Exact etiology not clear. Differential diagnosis includes cardiac dysrhythmia, hypoglycemia, postural hypotension, seizure disorder. At this point agree with cardiac monitoring. Since patient is diabetic, will schedule patient for a nuclear stress test. A 2D echocardiogram has been ordered for risk stratification. Diabetes: Recommend good control of blood sugar but avoid hyper or hypoglycemia. Dyslipidemia: Recommend statin therapy. Goal should be less than 70. Morbid obesity: Patient has been advised to lose weight. Obstructive sleep apnea: Patient advised compliance with CPAP therapy. Dyspnea possibly multifactorial related to overweight, diastolic dysfunction, systolic dysfunction, possible ischemia equivalent symptom. To be evaluated further by 2D echo and nuclear stress test. - Time Time Spent: 50 to 70 Minutes - CODE STATUS was discussed, patient remains full code. Surrogate decision-maker patient's daughter. Multiple medical problems were addressed. More than 50% of the time spent coordinating care, discussing management plans with involved caregivers. Management plans discussed with involved personnels. Medical decision making was of moderate to high complexity , patient's has multiple comorbidities. Medications reviewed and adjusted accordingly: Yes
[2017-06-03] MEDS ORDERED: TAMSULOSIN HCL 0.4 MG CAP.SR.24H PO SCH (22:00)
[2017-06-04] MEDS: HEPARIN SOD (PORCINE) 5,000 UNIT/ML 1 ML SYRINGE SUBCUT SCH ×2 (06:26→15:35)
[2017-06-04 07:17] LABS: ANION GAP 10 (5-19); BLOOD UREA NITROGEN 21 mg/dL (7-20); CALCIUM 9.6 mg/dL (8.4-10.2); CARBON DIOXIDE 26 mmol/L (22-30); CHLORIDE 108 mmol/L (98-107); CREATININE RESULT 1.35 mg/dL (0.52-1.25); GLUCOSE 88 mg/dL (75-110); POTASSIUM 4.3 mmol/L (3.6-5.0); SODIUM 143.8 mmol/L (137-145)
[2017-06-04] MEDS ORDERED: DONEPEZIL HCL 5 MG TABLET PO SCH ×2 (10:00→22:00)
[2017-06-04] MEDS ORDERED: CARVEDILOL 12.5 MG TABLET PO SCH (10:00)
[2017-06-04] MEDS ORDERED: ASPIRIN 81 MG TABLET, ENT COATED PO SCH (10:00)
[2017-06-04] MEDS ORDERED: AMINOPHYLLINE INJ/PF 250 MG/10 ML SDV IV ONE (11:01)
[2017-06-04] MEDS ORDERED: REGADENOSON INJ 0.4 MG/5 ML DISP.SYRIN IV ONE (11:01)
--- NOTE | 2017-06-04 12:31 | DRAGON STRESS TEST REPORT ---
INTRAVENOUS LEXISCAN CARDIOLITE STRESS TEST USING SINGLE PHOTON EMMISION COMPUTERIZED TOMOGRAPHIC. DATE OF PROCEDURE: June 04, 2017 INDICATION : Syncope, diabetes, hypertension, dyslipidemia RESTING EKG: Sinus rhythm, minor nonspecific ST-T changes. STRESS EKG: No significant changes noted with LexiScan bolus REASON FOR TERMINATION: Protocol. PROCEDURE REPORT: Baseline heart rate 65 beats per minute with blood pressure of 147/73. Patient had no significant complaints. Heart rate at 2 minutes post bolus 81 with a blood pressure of 134/70. 3 minutes post bolus heart rate 72 with blood pressure of 137/70. No significant EKG changes were noted. Patient had no significant complaints during the procedure or postprocedure. Patient injected with Aminophyllin 75 mg at 3 minutes or later after Lexiscan bolus. CONCLUSIONS: Normal EKG and hemodynamic response to IV LexiScan. NUCLEAR DATA: At rest the patient was given 15.60 millicuries of technetium 99 sestamibi injected intravenously. As per protocol rest gated SPECT images were obtained. Subsequently the patient was given intravenous LexiScan at a dose of 0.4 mg in 5 mL intravenously, followed by flush with normal saline. Subsequently the stress dose of 47.6 millicuries of technetium 99 sestamibi was injected intravenously. As per protocol stress gated images were obtained. NUCLEAR INTERPRETATION: Both raw and processed data were used for interpretation. Visual, qualitative, computer-generated quantitative data was used. There was good myocardial uptake of technetium compound. Motion artifact and soft tissue attenuations were noted. Increased visceral uptake was noted. Significant diaphragmatic attenuation also noted. This cause difficulty with interpretation of the inferior myocardium. No definitive areas of transient perfusion defect noted. Small area of mild fixed defect noted involving the basal and mid inferior wall. Borderline inferior wall hypokinesia suspected. EKG gated imaging showed LV EF at 44 %, rest and stress gated EF similar visually. T. I D. ratio was 1.37. Lung heart ratio noted to be within normal limits 0.27. No significant extracardiac and abnormal radiotracer activities were noted. RV free wall uptake was noted to be WNL. IMPRESSION: Also refer to comments under nuclear interpretation. Also test results needs to be interpreted in the context of pretest probability. 1. There is no definitive scintigraphic evidence of LexiScan induced myocardial ischemia. 2. There is no definitive scintigraphic evidence of myocardial infarction/scar. 3. EKG gated imaging shows left ventricular ejection fraction of approximately 44 %. 4. Borderline transient ischemic dilatation noted. Clinical significance not clear. Clinical correlation requested as worse disease or balanced ischemia could be missed. In approximately 10% of the cases Lexiscan may not cause adequate vasodilatory stress. RECOMMENDATIONS: Aggressive risk factor modification, medical therapy. Clinical correlation with echocardiogram derived ejection fraction. Inability to exercise by itself can lead to increased cardiovascular event risks. Consider cardiology consultation and or follow-up if clinically indicated. I AM AVAILABLE FOR CARDIOLOGY CONSULTATION AND FOLLOWUP IF REQUESTED BY PMD Kerwin Escobedo M.D., MADDIE Information Management Manager cracking and fanning machine operator, Board certified in cardiovascular diseases, Nuclear cardiology, Echocardiography Cardiac CT and cardiac MRI Ph. [phone] [facility] HEALTHJuan Luis
[2017-06-04] MEDS: ISOSORBIDE DINITRATE 20 MG TABLET PO SCH ×3 (12:40→17:59)
[2017-06-04] MEDS: HYDRALAZINE HCL 50 MG TABLET PO SCH ×3 (12:41→17:57)
[2017-06-04] MEDS: SPIRONOLACTONE 25 MG TABLET PO SCH ×2 (12:41→17:57)
--- NOTE | 2017-06-04 12:41 | PDOC PROGRESS REPORT ---
Subjective Progress Note for:: 06/04/17 Subjective:: Patient seems to be doing better with gradual improvement. Pt is denying any chest arm or neck discomfort. Patient denying any PND, orthopnea. Patient denied any sustained palpitations, dizziness, syncope, near syncope. Patient denying any fever chills. Patient denying any other significant discomfort. Patient is maintaining sinus rhythm. Review of systems: Rest review of systems negative. Medications: Medications have been reviewed. Physical Exam Vital Signs: Temp Pulse Resp BP Pulse Ox 98.3 F 58 L 18 143/67 H 97 06/04/17 08:00 06/04/17 08:00 06/04/17 08:00 06/04/17 08:00 06/04/17 08:00 Intake & Output 06/03/17 06/04/17 06/05/17 06:59 06:59 06:59 Intake Total 1050 3670 Output Total 1400 4480 Balance -350 -810 Weight 129 kg Exam: GENERAL: well-nourished and in no acute distress. Alert and oriented x3 HEAD: Atraumatic, normocephalic. EYES: Pupils equal round and reactive to light, extraocular movements intact, sclera anicteric, conjunctiva are normal. ENT: TMs normal, nares patent, oropharynx clear without exudates. Moist mucous membranes. No oral ulcerations or bleeding gums noted NECK: supple without lymphadenopathy. Trachea is central. No cervical or axillary lymphadenopathy noted. Carotids are 2+, JVD WNL LUNGS: Respiration seems nonlabored, no significant accessory muscle action noted. Breath sounds clear to auscultation bilaterally and equal noted. No wheezes rales or rhonchi noted. No significant dullness noted on percussion. CHEST: Palpation of the chest wall shows no significant chest wall tenderness. No other significant abnormalities noted. 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 ABDOMEN: Soft, no significant tenderness appreciated, normoactive bowel sounds. No guarding, no rebound. No rigidity noted . No masses appreciated. EXTREMITIES: Pedal pulses are 1-2+, no calf tenderness noted. No clubbing or cyanosis.trace to 1+ pedal edema noted NEUROLOGICAL: Focused neurological exam showed no significant neurologic deficit. Normal speech, no focal weakness appreciated. PSYCH: Normal mood, normal affect. Judgment and insight within normal limits. SKIN: No significant ecchymosis, rash, ulcerations or signs of pruritus noted. MUSCULOSKELETAL EXAM: No significant joint swelling noted. Results Laboratory Results: 06/04/17 06:28 06/04/17 06:28 Sodium 143.8 Potassium 4.3 Chloride 108 H Carbon Dioxide 26 Anion Gap 10 BUN 21 H Creatinine 1.35 H Est GFR ( Amer) > 60 Est GFR (Non-Af Amer) 52 L Glucose 88 Calcium 9.6 06/03/17 06/03/17 07:48 14:23 Troponin I 0.028 0.015 EKG Comments: Showed sinus rhythm without any sustained tachycardia or bradycardia arrhythmias. Impressions: Chest X-Ray 06/02/17 00:00 IMPRESSION: NO ACUTE RADIOGRAPHIC FINDING IN THE CHEST. Carotid Doppler Study 06/03/17 00:00 IMPRESSION: No hemodynamically significant stenosis. The study is limited by inability to image right internal carotid external carotid arteries. Consider MRA or CTA. Assessment & Plan - Diagnosis (1) Syncope and collapse Is this a current diagnosis for this admission?: Yes (2) Diabetes mellitus type 2 in obese Is this a current diagnosis for this admission?: Yes (3) HLD (hyperlipidemia) Qualifiers: Hyperlipidemia type: unspecified Qualified Code(s): E78.5 - Hyperlipidemia , unspecified Is this a current diagnosis for this admission?: Yes (4) HTN (hypertension) Qualifiers: Hypertension type: essential hypertension Qualified Code(s): I10 - Essential (primary) hypertension Is this a current diagnosis for this admission?: Yes (6) DEIDRE (obstructive sleep apnea) Is this a current diagnosis for this admission?: Yes (7) Dyspnea Qualifiers: Dyspnea type: other forms of dyspnea Qualified Code(s): R06.09 - Other forms of dyspnea Is this a current diagnosis for this admission?: Yes - Notes Notes: 2D echo shows normal LVEF. Study however was technically difficult. Nuclear stress was technically difficult because of patient's body habitus. No definite ischemia noted but mild fixed defect noted inferior wall. At this point would recommend beta-alexis therapy, JESSI inhibitor therapy/ARB/statin therapy and also antiplatelet therapy. Recommend obtaining orthostatic blood pressures. Would also recommend prolonged monitoring as an outpatient. Possible tilt table testing as an outpatient. Recommend EEG. Discussed various differential diagnosis of syncopal spell with the patient. This includes cardiac dysrhythmia, vasovagal/neurocardiogenic, hypoglycemia, orthostatic hypotension, seizure disorder etc. Discussed that other option would be to consider transfer to tertiary care for EP study etc. but since LVEF is well preserved, yield will be low. Patient prefers outpatient evaluation with event monitoring and close cardiology follow-up. Patient was seen multiple times today. Approximate times involved is more than 40 minutes. - Time Time with patient: Greater than 35 minutes - CODE STATUS was discussed, patient remains full code. Surrogate decision-maker unchanged. Multiple medical problems were addressed. More than 50% of the time spent coordinating care, discussing management plans with involved caregivers. Management plans discussed with involved personnels. Medical decision making was of moderate to high complexity, patient's has multiple comorbidities. Medications reviewed and adjusted accordingly: Yes
[2017-06-04] MEDS: DOCUSATE SODIUM 100 MG CAPSULE PO SCH ×2 (12:43→17:59)
[2017-06-04 13:50] VITALS: BP 154/84
--- NOTE | 2017-06-04 15:56 | PDOC DISCHARGE SUMMARY ---
General - Admit/Disc Date/PCP Admission Date/Primary Care Provider: 06/03/17 04:47 Discharge Date: 06/04/17 - Discharge Diagnosis (1) Syncope and collapse Is this a current diagnosis for this admission?: Yes (2) Hypoglycemia Is this a current diagnosis for this admission?: Yes (3) First degree AV block Is this a current diagnosis for this admission?: Yes (4) Diabetes mellitus type 2 in obese Is this a current diagnosis for this admission?: Yes (5) HLD (hyperlipidemia) Is this a current diagnosis for this admission?: Yes (6) HTN (hypertension) Is this a current diagnosis for this admission?: Yes (7) Morbid obesity with BMI of 40.0-44.9, adult Is this a current diagnosis for this admission?: Yes (8) CHF (congestive heart failure) Is this a current diagnosis for this admission?: Yes (9) DEIDRE (obstructive sleep apnea) Is this a current diagnosis for this admission?: Yes - Additional Information Resuscitation Status: Full Code Discharge Diet: Cardiac - Low-fat low-salt, Diabetic - No concentrated sweets Discharge Activity: Activity As Tolerated, Balance Activity w/Rest Home Medications: Aspirin [Ecotrin] 81 mg PO DAILY 06/03/17 Citalopram Hydrobromide [Celexa 40 mg Tablet] 40 mg PO DAILY 06/03/17 Donepezil HCl [Aricept 5 mg Tablet] 5 mg PO DAILY 06/03/17 Hydralazine HCl [Apresoline 50 mg Tablet] 50 mg PO TID 06/03/17 Isosorbide Dinitrate [Isordil Titradose 20 mg Tablet] 20 mg PO TID 06/03/17 Lovastatin [Altoprev] 40 mg PO DAILY 06/03/17 [place]-3 Fatty Acids/Fish Oil [Fish Oil 1,000 mg Capsule] 1 cap PO Q8 06/03/17 Omeprazole 20 mg PO DAILY 06/03/17 Spironolactone [Aldactone 25 mg Tablet] 25 mg PO BID 06/03/17 Tamsulosin HCl [Flomax 0.4 mg Cap.sr] 0.4 mg PO QHS 06/03/17 Carvedilol [Coreg 25 mg Tablet] 0.5 tab PO DAILY #0 06/04/17 Additional Information: 1. Return to the emergency room if symptoms recur 2. Discontinue metformin 3. MRI MRA of the neck outpatient with primary care physician. 4. Event recorder as outpatient with Dr. Escobedo next week. History of Present Illness Patient complains of: Syncope History of Present Illness: RONI SEXTON is a 71 year old morbidly obese -[place] male, with underlying hypertension, obstructive sleep apnea, without home O2, with pressure setting of 14, congestive heart failure, uncertain if systolic and/or diastolic, hyperlipidemia, type 2 diabetes mellitus, mild reflux, arthritis, mild depression, without suicidal or homicidal ideation, and underlying prostate cancer, currently being followed with serial PSA who presents to the emergency room for evaluation of first syncopal episode. Patient has been discussed with emergency room physician who evaluated the patient. Was sitting on his scooter outside waiting for grandchild to get off the bus. Grabbed his chest, eyes rolled back, and he "went limp." No fecal or urinary incontinence. No biting of the tongue. No known seizure disorder. Witnessed by 1 of his daughters; another daughter is at his bedside, with patient's approval. The witnessing daughter is not present. No prior such episodes. Prior to the above episode, he was in his usual state of health, with no complaints of nausea vomiting, fever or chills, diarrhea or dysuria. No headache chest or abdominal pain. Feels back to his usual self at the present time also. No recent change in his medications. Long-term noncompliance with his medications. Denies use of alcohol tobacco or illicit drugs. For details please refer to history and physical examination performed by the admitting physician. Hospital Course Hospital Course: The patient was admitted to observation. Cardiology was consulted for the syncope. The patient was noted to be hypoglycemic as well. Patient apparently was on metformin at home. Carotid Doppler was obtained showing no significant hemodynamic stenosis but reports inconclusive study on the right side. 2D echocardiogram did not reveal any significant valvular defect and ejection fraction is normal. Cardiac enzymes were obtained reportedly was negative. Cardiology eventually perform a stress test showing no reversible ischemia. Patient was noted to be bradycardic while in the hospital and his Coreg dose was decreased. He was likewise advised to discontinue his metformin as the syncope could also be secondary to hypoglycemia. He was advised to have an event recorder outpatient with cardiology service. He was also advised to have MRI of the carotids with his primary care physician. The rest of the hospital stays unremarkable. No dizziness nor syncopal episode while in the banks. No significant arrhythmia reported on hand coper. Physical Exam Vital Signs: Temp Pulse Resp BP Pulse Ox 98.5 F 78 20 154/84 H 97 06/04/17 12:00 06/04/17 14:00 06/04/17 12:00 06/04/17 12:00 06/04/17 15:47 Intake & Output 06/03/17 06/04/17 06/05/17 06:59 06:59 06:59 Intake Total 1050 3670 Output Total 1400 4480 Balance -350 -810 Weight 129 kg General appearance: PRESENT: no acute distress, obese Head exam: PRESENT: normocephalic Eye exam: PRESENT: EOMI Mouth exam: PRESENT: moist, neck supple Neck exam: ABSENT: JVD Respiratory exam: PRESENT: clear to auscultation tricia. ABSENT: rhonchi, wheezes Cardiovascular exam: PRESENT: RRR. ABSENT: gallop GI/Abdominal exam: PRESENT: hypoactive bowel sounds, soft Extremities exam: PRESENT: other - Trace lower extremity edema Neurological exam: PRESENT: alert, awake, oriented to situation Skin exam: PRESENT: dry, warm. ABSENT: cyanosis Results Laboratory Results: 06/04/17 06:28 06/04/17 06:28 Sodium 143.8 Potassium 4.3 Chloride 108 H Carbon Dioxide 26 Anion Gap 10 BUN 21 H Creatinine 1.35 H Est GFR ( Amer) > 60 Est GFR (Non-Af Amer) 52 L Glucose 88 Calcium 9.6 06/03/17 06/03/17 07:48 14:23 Troponin I 0.028 0.015 Impressions: Chest X-Ray 06/02/17 00:00 IMPRESSION: NO ACUTE RADIOGRAPHIC FINDING IN THE CHEST. Carotid Doppler Study 06/03/17 00:00 IMPRESSION: No hemodynamically significant stenosis. The study is limited by inability to image right internal carotid external carotid arteries. Consider MRA or CTA. Qualifiers PATEINT BEING DISCHARGED WITH ANY OF THE FOLLOWING DIAGNOSIS?: No Plan Discharge Plan: Follow-up with primary care physician in 1 week. Follow-up with cardiology in 1 -2 weeks. Time Spent: Less than 30 Minutes
== END 2017-06-04 20:08 | disposition home or self-care (01) ==
LOC: ER 17:05 → EH 21:34 → UNDOADMOB 21:34 → 5 06-03 00:08 → EH 06-03 00:08 → 5 06-03 04:47 → EH 06-03 04:47
PROVIDERS: ADMIT Family Medicine; ATTEND Family Medicine
PROC: 5A09357 Assistance with Respiratory Ventilation, Less than 24 Consecutive Hours, Continuous Positive Airway Pressure (ICD-10-PCS; principal; 2017-06-03)
PROC: 5A09357 Assistance with Respiratory Ventilation, Less than 24 Consecutive Hours, Continuous Positive Airway Pressure (ICD-10-PCS; 2017-06-04)
DX: R55 Syncope and collapse (principal); E11.649 Type 2 diabetes mellitus with hypoglycemia without coma; I44.0 Atrioventricular block, first degree; E78.5 Hyperlipidemia, unspecified; I50.9 Heart failure, unspecified; I11.0 Hypertensive heart disease with heart failure; E66.01 Morbid (severe) obesity due to excess calories; Z68.41 Body mass index [BMI] 40.0-44.9, adult; G47.33 Obstructive sleep apnea (adult) (pediatric); K21.9 Gastro-esophageal reflux disease without esophagitis; M19.90 Unspecified osteoarthritis, unspecified site; F32.9 Major depressive disorder, single episode, unspecified; C61 Malignant neoplasm of prostate; R00.1 Bradycardia, unspecified; R06.09 Other forms of dyspnea; Z79.899 Other long term (current) drug therapy; Z79.82 Long term (current) use of aspirin; Z91.14 Patient's other noncompliance with medication regimen; Z82.3 Family history of stroke
CPT/HCPCS: 93005; 99284; 96360; 36415 ×3; 87040; 82553; 82962 ×2; 80307; 82550; 83735; 84443; 85025; 80048 ×2; 80053; 81001; 84484 ×2; 83605; 80061; 93306; 93017; 93880; 71010; 78452; 93010; 94660 ×2; A9500; J2785; J1644 ×2; A9270 ×7; J7030 ×2; J0280; Q9969

== ENCOUNTER 2017-07-28 14:16 | Emergency (ER) | payer MEDICARE, MEDICAID ==
[2017-07-28 15:07] LABS: ABSOLUTE BASOPHILS # (AUTO) 0.1 10^3/uL (0.0-0.2); ABSOLUTE EOSINOPHILS # (AUTO) 0.4 10^3/uL (0.0-0.6); ABSOLUTE LYMPHOCYTES (AUTO) 2.6 10^3/uL (0.5-4.7); ABSOLUTE MONOCYTES (AUTO) 0.5 10^3/uL (0.1-1.4); ABSOLUTE NEUT (AUTO) 3.7 10^3/uL (1.7-8.2); BASOPHILS % (AUTO) 1.3 % (0-2); EOSINOPHILS % (AUTO) 5.9 % (0-6); HEMATOCRIT 42.9 % (37.9-51.0); HEMOGLOBIN 14.1 g/dL (13.5-17.0); HGB HCT DIFFERENCE -0.6; MEAN CORPUSCULAR HEMOGLOBIN 28.8 pg (27.0-33.4); MEAN CORPUSCULAR HGB CONC 32.9 g/dL (32.0-36.0); MEAN CORPUSCULAR VOLUME 88 fl (80-97); MONOCYTES % (AUTO) 6.8 % (3-13); RED BLOOD COUNT 4.91 10^6/uL (4.35-5.55); RED CELL DISTRIBUTION WIDTH 14.8 % (11.5-14.0); WHITE BLOOD COUNT 7.3 10^3/uL (4.0-10.5)
--- NOTE | 2017-07-28 15:24 | ER Document Report ---
ED Dizziness/Weakness - General Chief Complaint: Near Syncope Stated Complaint: POSSIBLE SYNCOPE Time Seen by Provider: 07/28/17 14:51 Notes: Patient says he experienced an episode of dizziness and weakness in his legs at about 1:45 PM this afternoon while trying on diabetic shoes at a local pharmacy. Friend who was with him witnessed the patient to slump and his eyes rolled up and he was unresponsive. The friend rubbed hard on his sternum, apparently wakening the patient. Patient denies being nauseated and did not have any vomiting. He did not have any headache, chest pain, or other symptoms except he did get slightly sweaty. EMS was called and when they arrived, their initial blood pressure for this patient was 92/56 with a pulse rate of 65. Subsequently, he had a blood pressure of 116/90. Patient had a similar episode a couple of months ago and was admitted to this hospital for workup. He underwent a Cardiolite stress test and carotid artery Dopplers, both of which were normal. He has also worn a cardiac exercise specialist for 4 days and just received notice from Dr. Escobedo's office that the results were normal. PMH: NIDDM, hypertension, high cholesterol, prostate CA. TRAVEL OUTSIDE OF THE [place] IN LAST 30 DAYS: No - Related Data Allergies/Adverse Reactions: No Known Allergies Allergy (Verified 07/28/17 14:45) Home Medications: Current Home Medications Carvedilol 6.25 mg PO DAILY 07/28/17 [History] Ezetimibe 10 mg PO DAILY 07/28/17 [History] Hydrochlorothiazide [Hydrodiuril 25 mg Tablet] 25 mg PO QAM 07/28/17 [History] Past Medical History - Social History Smoking Status: Former Smoker Frequency of alcohol use: None Drug Abuse: None Family History: Hypertension Patient has suicidal ideation: No Patient has homicidal ideation: No - Past Medical History Cardiac Medical History: Reports: Hx Congestive Heart Failure, Hx Hypercholesterolemia, Hx Hypertension Pulmonary Medical History: Reports: Hx Sleep Apnea Endocrine Medical History: Reports: Hx Diabetes Mellitus Type 2 GI Medical History: Reports: Hx Gastroesophageal Reflux Disease. Denies: Hx Hepatitis Musculoskeltal Medical History: Reports Hx Arthritis Psychiatric Medical History: Reports: Hx Depression Past Surgical History: Reports: Hx Orthopedic Surgery - ankle, elbow Review of Systems - Review of Systems Notes: REVIEW OF SYSTEMS: CONSTITUTIONAL : Denies fever. EENT: Denies eye, ear, nose or mouth or throat pain or other symptoms. CARDIOVASCULAR: Denies chest pain. RESPIRATORY: Denies cough, chest congestion, or shortness of breath. GASTROINTESTINAL: Denies abdominal pain or nausea, vomiting, or diarrhea. GENITOURINARY: Denies difficulty or painful urinating, urinary frequency, blood in urine. MUSCULOSKELETAL: Denies back or neck pain. Denies joint pain or swelling. SKIN: Denies rash or skin lesions. NEUROLOGICAL: See HPI. No current symptoms or deficits. Denies headache. Denies sensory loss or motor deficits. ALL OTHER SYSTEMS REVIEWED AND NEGATIVE. Physical Exam - Vital signs Vitals: Temp Resp Pulse Ox 98.0 F 18 97 07/28/17 14:27 07/28/17 14:27 07/28/17 14:27 - Notes Notes: PHYSICAL EXAMINATION: GENERAL: Well-appearing, in no acute distress. Vital signs are normal here. HEAD: Atraumatic, normocephalic. EYES: Pupils equal round and reactive to light, extraocular movements intact. ENT: oropharynx clear without exudates. Moist mucous membranes. NECK: Normal range of motion, supple. No carotid bruits heard. LUNGS: Breath sounds clear and equal bilaterally. HEART: Regular rate and rhythm without murmurs. ABDOMEN: Soft, nontender. No guarding or rebound. BACK: No tenderness throughout entire back. EXTREMITIES: Normal range of motion without pain. NEUROLOGICAL: Normal speech, normal gait. Normal sensory, motor, and reflex exams. Awake, alert, and oriented x3. Cranial nerves normal. PSYCH: Normal mood, normal affect. SKIN: Warm, dry, no rashes. Course - Re-evaluation Re-evalutation: 07/28/17 18:29 Patient's workup tonight in the emergency department does not show any significant abnormality except for very slight worsening of patient's renal function. Dr. Escobedo is not currently in the country but Dr. Sanz is business analysis consultant for him and I spoke to Dr. Sanz who recommends discontinuing the patient's nitrites and hydrochlorothiazide and he will see the patient in his office tomorrow. He gave me his cell phone number to provide to the patient to call tomorrow morning to get a time to come to the office. - Vital Signs Vital signs: Temp Pulse Resp BP Pulse Ox 98.0 F 67 14 127/47 H 94 12/13/17 14:27 07/28/17 15:23 07/28/17 18:01 07/28/17 18:01 07/28/17 18:01 - Laboratory Result Diagrams: 07/28/17 14:40 07/28/17 15:39 Laboratory results interpreted by me: 07/28/17 07/28/17 07/28/17 14:40 15:39 16:40 RDW 14.8 H BUN 23 H Creatinine 1.64 H Est GFR ( Amer) 50 L Est GFR (Non-Af Amer) 42 L Urine Protein 30 H Urine Urobilinogen 2.0 H Ur Leukocyte Esterase TRACE H - EKG Interpretation by Me EKG shows normal: Sinus rhythm Rate: Normal Rhythm: NSR Heart block present: 1st Degree Additional EKG results interpreted by me: 07/28/17 15:29 EKG shows what may be an old anterior infarct. Discharge - Discharge Clinical Impression: Syncope, Hypotension Condition: Stable Disposition: HOME, SELF-CARE Additional Instructions: SYNCOPAL EPISODE: Syncope (fainting or near-fainting) can occur from many different health problems. Or it can be a simple fainting spell requiring no treatment. It is safe for you to go home, but further evaluation will likely be necessary. Your work-up may include tests for internal bleeding, heart disease, medication problems, or near-strokes. Tests are not always required, however, depending on the nature of your problem. The warning signs of an impending faint include: dizziness, lightheadedness , nausea, hot flashes, tingling, and weakness. If this happens, lay down and put your feet up, then wait until all of these symptoms have passed before standing up again. If these episodes become recurrent, or if you develop chest pain, heart palpitations, mental confusion, blurred vision, or headache, then you should call the physician, or go to the emergency room. Kidney Function Abnormality Your evaluation has shown an abnormality of your kidney function. These findings are similar to ones that were found when you were seen here 6 weeks ago , with slight worsening of the function. An abnormal kidney function test can be caused by dehydration, acute kidney damage, blood vessel disease (such as with diabetes or chronic high blood pressure), or just old age. If the abnormality is caused by an acute disease, it may reverse completely. Have a repeat test. If it's normal, don't worry about your kidneys. If you have a chronic kidney problem, you must be careful with medicines and medical tests. Be sure any doctor who prescribes medicine or orders tests knows that your kidney tests have been abnormal. Some medicines must have the dose reduced, other medicines must be avoided. If the doctor has recommended further workup, be sure to follow up as instructed. Call us if you have new flank pain, vomiting, confusion, or if you' re unable to urinate. NORMAL EXAM AND WORKUP: At this time, other than your kidney function tests, your examination and workup show no significant abnormality. No significant abnormal physical findings were noted. All laboratory, EKG, and imaging (x-ray, CT scans, ultrasound) studies that were ordered show no significant abnormality. Although your examination and all studies that were ordered showed no significant abnormal finding, there are no examinations and no studies that are 100% accurate. There is always the possibility that some abnormality could exist and not be detected with physical examination or within the limits and capabilities of laboratory and other studies. You should return or follow up as you were instructed on your visit today for further evaluation if your symptoms do not resolve. Stop your hydrochlorothiazide and your isosorbide medication for now. FOLLOW-UP CARE: If you have been referred to a physician for follow-up care, call the physician s office for an appointment as you were instructed or within the next two days. If you experience worsening or a significant change in your symptoms, notify the physician immediately or return to the Emergency Department at any time for re-evaluation. Call Dr. Ross about 8 AM tomorrow morning on his cell phone [phone] and he will schedule you for a time to be seen in his office tomorrow. Referrals: ABDIAZIZ JIMÉNEZ MD [Primary Care Provider] - Follow up as needed ZUHAIR SANZ MD [ACTIVE STAFF] - Follow up tomorrow
[2017-07-28 16:18] LABS: ALANINE AMINOTRANSFERASE 26 U/L (21-72); ALBUMIN 3.6 g/dL (3.5-5.0); ALKALINE PHOSPHATASE 86 U/L (38-126); ASPARTATE AMINO TRANSFERASE 24 U/L (17-59); BILIRUBIN,DIRECT 0.2 mg/dL (0.0-0.4); BILIRUBIN,TOTAL 0.2 mg/dL (0.2-1.3); BLOOD UREA NITROGEN 23 mg/dL (7-20); CALCIUM 9.4 mg/dL (8.4-10.2); CREATININE RESULT 1.64 mg/dL (0.52-1.25); GLUCOSE 97 mg/dL (75-110)
[2017-07-28 16:19] LABS: CREATINE KINASE 158 U/L (55-170); TOTAL PROTEIN 7.2 g/dL (6.3-8.2)
[2017-07-28 16:31] LABS: ANION GAP 10 (5-19); CARBON DIOXIDE 27 mmol/L (22-30); CHLORIDE 107 mmol/L (98-107); POTASSIUM 4.7 mmol/L (3.6-5.0); SODIUM 143.9 mmol/L (137-145)
[2017-07-28 16:33] LABS: CREATINE KINASE MB 1.83 ng/mL (<4.55); TROPONIN I 0.025 ng/mL
[2017-07-28 17:37] LABS: APPEARANCE,URINE SLIGHTLY-CLOUDY; BILIRUBIN,URINE NEGATIVE (NEGATIVE); GLUCOSE, URINE NEGATIVE (NEGATIVE); KETONES,URINE NEGATIVE (NEGATIVE); LEUKOCYTE ESTERASE,URINE TRACE (NEGATIVE); NITRITE,URINE NEGATIVE (NEGATIVE); PROTEIN,URINE 30 mg/dL (NEGATIVE)
[2017-07-28 18:19] VITALS: BP 127/47
--- NOTE | 2017-07-28 22:24 | EKG REPORT ---
SEVERITY:- ABNORMAL ECG - SINUS RHYTHM FIRST DEGREE AV BLOCK PROBABLE INFERIOR INFARCT, OLD LVH WITH SECONDARY ST-T CHANGES : Confirmed by: Kerwin Escobedo 28-Jul-2017 22:23:43
== END 2017-07-28 19:00 | disposition home or self-care (01) ==
LOC: ER 14:16
DX: I95.9 Hypotension, unspecified (principal); R55 Syncope and collapse; R53.1 Weakness; E11.9 Type 2 diabetes mellitus without complications; I10 Essential (primary) hypertension; Z85.46 Personal history of malignant neoplasm of prostate; Z87.891 Personal history of nicotine dependence; Z79.899 Other long term (current) drug therapy
CPT/HCPCS: 36415; 80053; 81001; 82550; 82553; 84484; 85025; 93005; 93010; 99284

== ENCOUNTER → 2017-08-02 | Outpatient (CLI) | payer MEDICARE, MEDICAID ==
--- NOTE | 2017-08-02 12:49 | RADIOLOGY REPORT (SQ) ---
EXAM DESCRIPTION: CTA NECK COMPLETED DATE/TIME: 08/02/2017 10:39 am REASON FOR STUDY: SYNCOPE AND CALLAPSE R55 SYNCOPE AND COLLAPSE COMPARISON: Carotid duplex study dated 06/03/2017 TECHNIQUE: Axial dynamic scanning technique with dynamic contrast enhancement through the extra-experimental aircraft mechanic nial carotid and vertebral arteries. Multiplanar reconstruction. 3-D MIPS and Volume-rendered imag es acquired at the workstation and saved to PACS. Images are reviewed in soft tissue, bone, lung w indows. All CT scanners at this facility use dose modulation, iterative reconstruction, and/or weight based d osing when appropriate to reduce radiation dose to as low as reasonably achievable (ALARA). [facility]: Dose Right [facility]: CareDose [facility]: Dose Right [facility]: Teradose 4D [facility]: Verastem CONTRAST TYPE AND DOSE: contrast/concentration: Isovue 300.00 mg/ml; Total Contrast Delivered: 75.0 ml; Total Saline Delivered: 75.0 ml RENAL FUNCTION: Creatinine 1.5 LIMITATIONS: None. FINDINGS: AORTIC ARCH: Normal three-vessel origin. Bilateral subclavian arteries are patent. No d issection. RIGHT CAROTIDS: Patent common, internal and external carotid arteries. Calcific atherosclerotic plaq uing is identified at the level of the distal common carotid artery and carotid bifurcation which dewey its visualization of the carotid lumen. There is a focal high-grade stenosis of the proximal right i nternal carotid artery. RIGHT VERTEBRAL: Patent. No dissection. LEFT CAROTIDS: Patent common, internal and external carotid arteries. Calcific atherosclerotic plaqu ing is identified at the level of the distal common carotid artery and carotid bifurcation which limi ts visualization of the carotid lumen. There is a focal high-grade stenosis of the left internal car otid artery. LEFT VERTEBRAL: Patent. No dissection. OTHER: There are prominent submandibular lymph nodes bilaterally. The right submandibular salivary g land is either absent or small in size. The thyroid gland is not well visualize due to artifact rela emma to the patient's body habitus. The thyroid gland appears enlarged and there appears to be thyroi d nodules on the right. Thyroid ultrasound may be of value for further evaluation. OTHER: 3-D reconstructions confirm findings. IMPRESSION: Somewhat limited study due to calcific atherosclerotic plaquing at the level of the dist al common carotid arteries and carotid bifurcations bilaterally. There are focal high-grade stenoses of the right and left internal carotid arteries as noted above. Other findings as noted above COMMENT: Quality ID #[id number]: Measurements of distal internal carotid diameter were used as the denomina tor for stenosis measurement. TECHNICAL DOCUMENTATION: JOB ID: [id number] Quality ID # [id number]: Final reports with documentation of one or more dose reduction techniques (e.g., Au tomated exposure control, adjustment of the mA and/or kV according to patient size, use of iterative reconstruction technique) 2010 [employer]- All Rights Reserved
== END ==
LOC: RAD 09:45
PROVIDERS: ATTEND Physician Assistant Medical
DX: I65.23 Occlusion and stenosis of bilateral carotid arteries (principal); R55 Syncope and collapse
CPT/HCPCS: 70498; 82565

== ENCOUNTER 2018-03-03 15:56 | Emergency (ER) | payer MEDICARE, MEDICAID ==
--- NOTE | 2018-03-03 16:11 | ER Document Report ---
ED Medical Screen (RME) - General Chief Complaint: Numbness of Arm Stated Complaint: TINGLING,BLURRED VISION Time Seen by Provider: 03/03/18 16:05 Notes: RAPID MEDICAL EVALUATION DISCLOSURE I have seen this patient as part of a Rapid Medical Evaluation and, if applicable, placed any initially appropriate orders. The patient will be seen and fully evaluated, including a full history and physical exam, by a provider ( in Main ED or Fast Track) when a room becomes available. 72-year-old male here with multiple complaints: COUGH Ongoing for the past 1 week. Productive green sputum. No shortness of breath or chest pain. Has not tried anything for the symptoms. Has a prior history of pneumonia many years ago. RIGHT ARM NUMBNESS Started several weeks ago. Has been intermittent. Only his right upper extremity, does not involve right lower extremity. Does not have any tingling or weakness or slurred speech or facial asymmetry. Does not have a prior history of stroke. BLURRY VISION Ongoing for several weeks as well. Intermittent and only present when he is using his computer and looking at the computer screen. Otherwise does not have any blurry vision. EXAM CTAB RRR Normal upper extremity strength 5/5 with intact sensation TRAVEL OUTSIDE OF THE [place] IN LAST 30 DAYS: No - Related Data Allergies/Adverse Reactions: No Known Allergies Allergy (Verified 03/03/18 15:56) Home Medications: zetia, atorvastatin, wellbutrin, plavix, spiralactone, allopurinol, carvediolol, plavix. Past Medical History - Social History Chew tobacco use (# tins/day): No Frequency of alcohol use: None Drug Abuse: None - Past Medical History Cardiac Medical History: Reports: Hx Congestive Heart Failure, Hx Hypercholesterolemia, Hx Hypertension Pulmonary Medical History: Reports: Hx Sleep Apnea Endocrine Medical History: Reports: Hx Diabetes Mellitus Type 2 Renal/ Medical History: Denies: Hx Peritoneal Dialysis GI Medical History: Reports: Hx Gastroesophageal Reflux Disease. Denies: Hx Hepatitis Musculoskeltal Medical History: Reports Hx Arthritis Psychiatric Medical History: Reports: Hx Depression Infectious Medical History: Denies: Hx Hepatitis Past Surgical History: Reports: Hx Orthopedic Surgery - ankle, elbow - Immunizations History of Influenza Vaccine for 05/2017 - 10/2017 Season: Yes Influenza Administration Date for 05/2017 - 10/2017 Season: 06/01/17 Doctor's Discharge - Discharge Referrals: ABDIAZIZ JIMÉNEZ MD [Primary Care Provider] - Follow up as needed
--- NOTE | 2018-03-03 16:35 | RADIOLOGY REPORT (SQ) ---
EXAM DESCRIPTION: CHEST 2 VIEWS COMPLETED DATE/TIME: 03/03/2018 4:21 pm REASON FOR STUDY: cough; eval pneumonia COMPARISON: None. EXAM PARAMETERS: NUMBER OF VIEWS: two views TECHNIQUE: Digital Frontal and Lateral radiographic views of the chest acquired. RADIATION DOSE: NA LIMITATIONS: none FINDINGS: LUNGS AND PLEURA: No opacities, masses or pneumothorax. No pleural effusion. MEDIASTINUM AND HILAR STRUCTURES: No masses or contour abnormalities. HEART AND VASCULAR STRUCTURES: Heart normal size. No evidence for failure. BONES: No acute findings. HARDWARE: None in the chest. OTHER: No other significant finding. IMPRESSION: NO ACUTE RADIOGRAPHIC FINDING IN THE CHEST. TECHNICAL DOCUMENTATION: JOB ID: [id number] [employer]- All Rights Reserved Reading location - IP/workstation name: [email or web address]
--- NOTE | 2018-03-03 16:58 | RADIOLOGY REPORT (SQ) ---
EXAM DESCRIPTION: CT HEAD WITHOUT COMPLETED DATE/TIME: 03/03/2018 4:33 pm REASON FOR STUDY: R arm numbness; bleed ischemia? COMPARISON: None. TECHNIQUE: Axial images acquired through the brain without intravenous contrast. Images reviewed wi th bone, brain and subdural windows. Additional sagittal and coronal reconstructions were generated. Images stored on PACS. All CT scanners at this facility use dose modulation, iterative reconstruction, and/or weight based d osing when appropriate to reduce radiation dose to as low as reasonably achievable (ALARA). [facility]: Dose Right [facility]: CareDose [facility]: Dose Right [facility]: Teradose 4D [facility]: PenPath RADIATION DOSE: CT Rad equipment meets quality standard of care and radiation dose reduction techniq ues were employed. CTDIvol: 53.2 mGy. DLP: 1017 mGy-cm. mGy. LIMITATIONS: None. FINDINGS: VENTRICLES: Normal CEREBRUM: No masses. No hemorrhage. No midline shift. Areas of low density in the white matter mos t likely due to chronic micro-vascular ischemic change. No evidence for acute infarction. Faint ignacio cifications are identified at the level of the basal ganglia bilaterally. CEREBELLUM: No masses. No hemorrhage. No alteration of density. No evidence for acute infarction. EXTRAAXIAL SPACES: Mild age-related involutional change. No fluid collections. No masses. ORBITS AND GLOBE: No intra- or extraconal masses. Normal contour of globe without masses. CALVARIUM: No fracture. PARANASAL SINUSES: There is opacification of the right maxillary antra, right ethmoid air cells, and right frontal sinus consistent with sinus disease. There is some apparent loss of the medial wall of the right maxillary antra with extension into the nasal cavity on the right. The possibility of an underlying mass cannot be excluded and followup is recommended SOFT TISSUES: No mass or hematoma. OTHER: No other significant finding. IMPRESSION: MILD CHRONIC CHANGES OF ATROPHY AND MICROVASCULAR ISCHEMIA. NO ACUTE intracranial PROCE SS. Sinus disease as noted above. Follow-up is recommended. Other findings as noted above EVIDENCE OF ACUTE STROKE: NO. TECHNICAL DOCUMENTATION: JOB ID: [id number] Quality ID # [id number]: Final reports with documentation of one or more dose reduction techniques (e.g., Au tomated exposure control, adjustment of the mA and/or kV according to patient size, use of iterative reconstruction technique) 2010 [email or web address] / [employer]- All Rights Reserved Reading location - IP/workstation name: [email or web address]
[2018-03-03 19:58] LABS: ABSOLUTE BASOPHILS # (AUTO) 0.1 10^3/uL (0.0-0.2); ABSOLUTE EOSINOPHILS # (AUTO) 0.3 10^3/uL (0.0-0.6); ABSOLUTE LYMPHOCYTES (AUTO) 2.6 10^3/uL (0.5-4.7); ABSOLUTE MONOCYTES (AUTO) 0.5 10^3/uL (0.1-1.4); ABSOLUTE NEUT (AUTO) 3.4 10^3/uL (1.7-8.2); BASOPHILS % (AUTO) 1.2 % (0-2); EOSINOPHILS % (AUTO) 4.5 % (0-6); HEMATOCRIT 43.2 % (37.9-51.0); HEMOGLOBIN 14.2 g/dL (13.5-17.0); LYMPHOCYTES % (AUTO) 37.6 % (13-45); MEAN CORPUSCULAR HEMOGLOBIN 28.9 pg (27.0-33.4); MEAN CORPUSCULAR VOLUME 88 fl (80-97); PLATELET COUNT 251 10^3/uL (150-450); RED BLOOD COUNT 4.92 10^6/uL (4.35-5.55); RED CELL DISTRIBUTION WIDTH 15.6 % (11.5-14.0); SEGMENTED NEUTROPHILS % (AUTO) 49.7 % (42-78); TOTAL CELLS COUNTED % (AUTO) 100 %
[2018-03-03 20:07] LABS: INTERNATIONAL RATION (INR) 0.98; PARTIAL THROMBOPLASTIN TIME 27.8 SEC (23.5-35.8); PROTHROMBIN TIME 13.4 SEC (11.4-15.4)
[2018-03-03 20:12] LABS: ANION GAP 11 (5-19); BLOOD UREA NITROGEN 28 mg/dL (7-20); CALCIUM 9.9 mg/dL (8.4-10.2); CARBON DIOXIDE 26 mmol/L (22-30); CHLORIDE 108 mmol/L (98-107); GLUCOSE 87 mg/dL (75-110); POTASSIUM 4.6 mmol/L (3.6-5.0); SODIUM 145.2 mmol/L (137-145)
--- NOTE | 2018-03-03 20:31 | ER Document Report ---
ED General - General Chief Complaint: Numbness of Arm Stated Complaint: TINGLING,BLURRED VISION Time Seen by Provider: 03/03/18 16:05 TRAVEL OUTSIDE OF THE [place] IN LAST 30 DAYS: No - HPI Notes: 72-year-old male presents with 2 weeks of cough productive of green sputum that has gradually worsened. He reports some nasal drainage. He denies fevers or chills. No shortness of breath or chest pain. Also reports intermittent episodes of tingling radiating from his hand to his shoulder and his right arm, only when using a mouse or a stylus on the computer. Denies any right arm pain or neck pain. Had a carotid endarterectomy on the left in September. Denies neck pain. No trauma. No headache. He also reports increased blurry vision even with using his reading glasses while looking at the computer. He does not notice any vision changes when he is not using computer. He does not read books or magazines, so cannot report if it is worsening with reading print. 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 He uses CPAP at night and frequently cleans it. Has history of congestive heart failure. No history of COPD. - Related Data Allergies/Adverse Reactions: No Known Allergies Allergy (Verified 03/03/18 15:56) Home Medications: zetia, atorvastatin, wellbutrin, plavix, spiralactone, allopurinol, carvediolol, plavix. Past Medical History - Social History Smoking Status: Former Smoker Chew tobacco use (# tins/day): No Frequency of alcohol use: None Drug Abuse: None Family History: Hypertension Patient has suicidal ideation: No Patient has homicidal ideation: No - Past Medical History Cardiac Medical History: Reports: Hx Congestive Heart Failure, Hx Hypercholesterolemia, Hx Hypertension Pulmonary Medical History: Reports: Hx Sleep Apnea Endocrine Medical History: Reports: Hx Diabetes Mellitus Type 2 Renal/ Medical History: Denies: Hx Peritoneal Dialysis GI Medical History: Reports: Hx Gastroesophageal Reflux Disease. Denies: Hx Hepatitis Musculoskeletal Medical History: Reports Hx Arthritis Psychiatric Medical History: Reports: Hx Depression Infectious Medical History: Denies: Hx Hepatitis Past Surgical History: Reports: Hx Orthopedic Surgery - ankle, elbow Review of Systems - Review of Systems Notes: REVIEW OF SYSTEMS: CONSTITUTIONAL: -fevers, -chills EENT: -eye pain, -difficulty swallowing, -nasal congestion, + nasal drainage, blurry vision intermittent CARDIOVASCULAR: -chest pain, -syncope. RESPIRATORY: +cough, -SOB GASTROINTESTINAL: -abdominal pain, -nausea, -vomiting, -diarrhea GENITOURINARY: -dysuria, -hematuria MUSCULOSKELETAL: -back pain, -neck pain SKIN: -rash or skin lesions. HEMATOLOGIC: -easy bruising or bleeding. LYMPHATIC: -swollen, enlarged glands. NEUROLOGICAL: -altered mental status or loss of consciousness, -headache, + tingling intermittent right arm PSYCHIATRIC: -anxiety, -depression. Physical Exam - Vital signs Interpretation: Hypertensive. No: Hypotensive, Bradycardic, Tachycardic, Hypoxic, Tachypneic, Febrile - Notes Notes: PHYSICAL EXAMINATION: GENERAL: Well-appearing, well-nourished and in no acute distress. HEAD: Atraumatic, normocephalic. EYES: Pupils equal round and reactive to light, extraocular movements intact, conjunctiva are normal. ENT: nares patent, oropharynx clear without exudates. Moist mucous membranes. NECK: Normal range of motion, supple without lymphadenopathy LUNGS: Breath sounds clear to auscultation bilaterally and equal. No wheezes rales or rhonchi. HEART: Regular rate and rhythm, no chest wall tenderness ABDOMEN: Soft, nontender, normoactive bowel sounds. No guarding, no rebound. No masses appreciated. EXTREMITIES: Normal range of motion, no pitting or edema. No cyanosis. No tenderness to palpation over right median nerve, elbow, or shoulder. Full range of motion. NEUROLOGICAL: Cranial nerves grossly intact. Normal speech, normal gait. Normal sensory and motor exams. Normal sensation right arm. No tongue deviation. No facial droop. Normal and equal mixer wet pour strengths PSYCH: Normal mood, normal affect. SKIN: Warm, Dry, normal turgor, no rashes or lesions noted. Course - Re-evaluation Re-evalutation: 03/03/18 20:37 Lungs clear. No hypoxia. 2 weeks of productive cough that is worsening with sinus disease noted on CT. Will treat with antibiotics. I do not believe tingling sensation in right arm is related to stroke. 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 Advised to follow-up with primary care physician for possible nerve conduction studies and second crusher for vision changes. Given ENT follow-up for sinus disease and possible mass seen on CT. Given strict return precautions. - Laboratory Result Diagrams: 03/03/18 19:42 03/03/18 19:42 Laboratory results interpreted by me: 03/03/18 03/03/18 19:42 19:42 RDW 15.6 H Sodium 145.2 H Chloride 108 H BUN 28 H Creatinine 1.55 H Est GFR ( Amer) 53 L Est GFR (Non-Af Amer) 44 L Discharge - Discharge Clinical Impression: Sinus disease, Paresthesias, Blurry vision Acute bronchitis Qualifiers: Bronchitis organism: unspecified organism Qualified Code(s): J20.9 - Acute bronchitis, unspecified Condition: Good Disposition: HOME, SELF-CARE Instructions: Bronchitis ([facility]) Additional Instructions: Follow-up with shearing shed worker for sinus disease and possible mass seen on CT. Take all antibiotics. Follow-up with your doctor for possible nerve conduction studies on the right arm. Follow-up with optometry for evaluation of blurry vision. Return for any worsening or concerning symptoms. Prescriptions: Benzonatate [Tessalon Perles 100 mg Capsule] 100 mg PO ASDIR PRN #20 capsule PRN Reason: Doxycycline Hyclate 100 mg PO BID #14 capsule Forms: Elevated Blood Pressure Referrals: ABDIAZIZ JIMÉNEZ MD [Primary Care Provider] - Follow up as needed NOELLE LOGAN DO [ASSOCIATE] - Follow up as needed
[2018-03-03 21:20] VITALS: BP 186/82
== END 2018-03-03 21:20 | disposition home or self-care (01) ==
LOC: ER 15:56
DX: J20.9 Acute bronchitis, unspecified (principal); J32.9 Chronic sinusitis, unspecified; R05 Cough; R20.2 Paresthesia of skin; H53.8 Other visual disturbances; F32.9 Major depressive disorder, single episode, unspecified; I11.0 Hypertensive heart disease with heart failure; I50.9 Heart failure, unspecified; E11.9 Type 2 diabetes mellitus without complications; E78.00 Pure hypercholesterolemia, unspecified; G47.30 Sleep apnea, unspecified; Z79.02 Long term (current) use of antithrombotics/antiplatelets; Z79.899 Other long term (current) drug therapy; Z87.891 Personal history of nicotine dependence; Z99.89 Dependence on other enabling machines and devices
CPT/HCPCS: 36415; 70450; 71046; 80048; 84484; 85025; 85610; 85730; 87040; 99284

== ENCOUNTER → 2018-03-28 | Outpatient (CLI) | payer MEDICARE, MEDICAID ==
--- NOTE | 2018-03-28 12:59 | RADIOLOGY REPORT (SQ) ---
EXAM DESCRIPTION: U/S RETROPERITON (RENAL/AORTA) COMPLETED DATE/TIME: 03/28/2018 12:14 pm REASON FOR STUDY: CHRONIC KIDNEY DISEASE, STAGE 3 (MODERAT N18.3 CHRONIC KIDNEY DISEASE, STAGE 3 (M ODERATE) M70.72 OTHER BURSITIS OF HIP, LEFT HIP COMPARISON: None. TECHNIQUE: Dynamic and static grayscale images acquired of the kidneys and bladder and recorded on P ACS. Additional selected color Doppler and spectral images recorded. LIMITATIONS: None. FINDINGS: RIGHT KIDNEY: The right kidney measures 7.4 cm in length, mild atrophy suggested. Diffus e increased echogenicity, may be on the basis of underlying medical renal disease. No solid or suspic ious masses. No hydronephrosis. No calcifications. LEFT KIDNEY: The left kidney measures 7.8 cm in length, mild atrophy suggested. Diffuse increased e chogenicity of the kidney may be on the basis of underlying medical renal disease. No solid or suspi cious masses. No hydronephrosis. No calcifications. BLADDER: The urinary bladder is incompletely distended. Bilateral ureteral jets are not visualized. OTHER FINDINGS: No other significant finding. IMPRESSION: 1 Atrophic appearance to the kidneys bilaterally. Diffuse increased echogenicity of the kidneys, may be on the basis of underlying medical renal disease. 2. No evidence of hydronephrosis. TECHNICAL DOCUMENTATION: JOB ID: [id number] [employer]- All Rights Reserved Reading location - IP/workstation name: [email or web address]
--- NOTE | 2018-03-28 13:06 | RADIOLOGY REPORT (SQ) ---
EXAM DESCRIPTION: HIP LEFT AP/LATERAL COMPLETED DATE/TIME: 03/28/2018 12:22 pm REASON FOR STUDY: OTHER BURSITIS OF HIP,LEFT HIP N18.3 CHRONIC KIDNEY DISEASE, STAGE 3 (MODERATE) M 70.72 OTHER BURSITIS OF HIP, LEFT HIP COMPARISON: None. NUMBER OF VIEWS: Two views. TECHNIQUE: AP pelvis and additional frog-leg view of the left hip. LIMITATIONS: None. FINDINGS: MINERALIZATION: Normal. LEFT HIP: No fracture or dislocation. No significant joint space narrowing. No erosions. RIGHT HIP: No fracture or dislocation. No worrisome bone lesions. PUBIS AND ISCHIUM: No fracture. PELVIS: No fracture. SACRUM: No fracture or dislocation. No worrisome bone lesions. LOWER LUMBAR SPINE: No fracture or dislocation. No worrisome bone lesions. No significant disc disea se. SOFT TISSUES: No findings. OTHER: No other significant finding. IMPRESSION: 1 NEGATIVE STUDY OF THE LEFT HIP AND PELVIS. TECHNICAL DOCUMENTATION: JOB ID: [id number] [employer]- All Rights Reserved Reading location - IP/workstation name: [email or web address]
== END ==
LOC: RAD 11:32
PROVIDERS: ATTEND Internal Medicine
DX: N18.3 Chronic kidney disease, stage 3 (moderate) (principal); M70.72 Other bursitis of hip, left hip
CPT/HCPCS: 76770

== ENCOUNTER 2018-11-04 16:15 | Emergency (ER) | payer MEDICARE, MEDICAID ==
[2018-11-04 16:26] VITALS: BP 142/81
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
== END 2018-11-04 18:30 | disposition home or self-care (01) ==
LOC: ER 16:15
DX: T46.6X1A Poisoning by antihyperlipidemic and antiarteriosclerotic drugs, accidental (unintentional), initial encounter (principal); X58.XXXA Exposure to other specified factors, initial encounter; Z87.891 Personal history of nicotine dependence; Z79.899 Other long term (current) drug therapy; I50.9 Heart failure, unspecified; I11.0 Hypertensive heart disease with heart failure; E11.9 Type 2 diabetes mellitus without complications
CPT/HCPCS: 99283

== ENCOUNTER 2019-01-16 15:37 | Emergency (ER) | payer MEDICARE, MEDICAID ==
[2019-01-16] MEDS ORDERED: HYDROCODONE/ACETAMINOPHEN 5-325 MG (6 TAB/ER DISP) PO PRN (17:01)
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
[2019-01-16 17:45] VITALS: BP 162/68
== END 2019-01-16 17:44 | disposition home or self-care (01) ==
LOC: ER 15:37
DX: E11.621 Type 2 diabetes mellitus with foot ulcer (principal); L97.412 Non-pressure chronic ulcer of right heel and midfoot with fat layer exposed; E11.40 Type 2 diabetes mellitus with diabetic neuropathy, unspecified; I10 Essential (primary) hypertension
CPT/HCPCS: 82962; 99283

== ENCOUNTER → 2019-09-14 | Outpatient (CLI) | payer MEDICARE, MEDICAID | LOC: OD 11:08 | PROVIDERS: ATTEND Family Medicine Geriatric Medicine | DX: E11.21 Type 2 diabetes mellitus with diabetic nephropathy (principal); Z79.899 Other long term (current) drug therapy | CPT/HCPCS: 36415; 86480 ==

== ENCOUNTER 2019-09-30 20:46 | Observation (INO) | payer MEDICARE, MEDICAID ==
[2019-09-30 21:21] LABS: HEMOGLOBIN 14.8 g/dL (13.5-17.0); MEAN CORPUSCULAR HEMOGLOBIN 28.2 pg (27.0-33.4); MEAN CORPUSCULAR HGB CONC 32.8 g/dL (32.0-36.0); MEAN CORPUSCULAR VOLUME 86 fl (80-97); PLATELET COUNT 231 10^3/uL (150-450); RED BLOOD COUNT 5.25 10^6/uL (4.35-5.55); WHITE BLOOD COUNT 6.4 10^3/uL (4.0-10.5)
--- NOTE | 2019-09-30 21:50 | RADIOLOGY REPORT (SQ) ---
EXAM DESCRIPTION: CLINICAL HISTORY: 73 years Male, Chest pain COMPARISON: Chest x-ray 03/03/2018. FINDINGS: Borderline heart size. No suspicious mediastinal widening. Apical lordotic view of the lungs. No obvious acute lung or pleural abnormalities. IMPRESSION: No obvious acute findings.
[2019-09-30 21:51] LABS: ABSOLUTE LYMPHOCYTES# (MANUAL) 2.3 10^3/uL (0.5-4.7); ABSOLUTE MONOCYTES # (MANUAL) 0.4 10^3/uL (0.1-1.4); BAND NEUTROPHILS % (MANUAL) 4 % (3-5); BASOPHILS % (MANUAL) 1 % (0-2); EOSINOPHILS % (MANUAL) 5 % (0-6); LYMPHOCYTES % (MANUAL) 36 % (13-45); METAMYELOCYTES % (MANUAL) 2 % (0-1); MONOCYTES % (MANUAL) 6 % (3-13); PROMYELOCYTES % (MANUAL) 1 % (0); SEGMENTED NEUTROPHILS % (MAN) 45 % (42-78); TOTAL CELLS COUNTED 100
[2019-09-30 21:52] LABS: ANISOCYTOSIS 1+; PLATELET COMMENT ADEQUATE; POLYCHROMASIA 1+
[2019-09-30 22:02] LABS: ALBUMIN 3.5 g/dL (3.5-5.0); ALKALINE PHOSPHATASE 81 U/L (38-126); ANION GAP 8 (5-19); ASPARTATE AMINO TRANSFERASE 24 U/L (17-59); BILIRUBIN,TOTAL 0.2 mg/dL (0.2-1.3); BLOOD UREA NITROGEN 25 mg/dL (7-20); CALCIUM 9.5 mg/dL (8.4-10.2); CARBON DIOXIDE 23 mmol/L (22-30); CHLORIDE 106 mmol/L (98-107); CREATINE KINASE 189 U/L (55-170); GLUCOSE 131 mg/dL (75-110); POTASSIUM 4.5 mmol/L (3.6-5.0); TOTAL PROTEIN 6.7 g/dL (6.3-8.2)
[2019-09-30 22:13] LABS: CREATINE KINASE MB 2.04 ng/mL (<4.55); TROPONIN I 0.014 ng/mL
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
[2019-09-30] MEDS ORDERED: NITROGLYCERIN 0.4 MG/TAB 25 TAB/BOTTLE SL PRN (23:46)
[2019-09-30] MEDS ORDERED: ACETAMINOPHEN 325 MG TABLET PO PRN (23:46)
[2019-10-01] MEDS ORDERED: ATORVASTATIN CALCIUM 40 MG TABLET PO ONE ×2 (00:15→02:45)
[2019-10-01] MEDS ORDERED: FAMOTIDINE 20 MG TABLET PO ONE ×2 (00:15→02:45)
[2019-10-01] MEDS ORDERED: INFLUENZA QUAD (6MOS+) 2019-20 VAC 0.5 ML SYR IM ONE (02:28)
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
[2019-10-01 07:19] VITALS: BP 146/64
--- NOTE | 2019-10-01 09:46 | PDOC DISCHARGE SUMMARY ---
Impression - Admit/DC Date/PCP Admission Date/Primary Care Provider: 10/01/19 00:06 DESTINEE JIMÉNEZ MD Discharge Date: 10/01/19 - Additional Information Resuscitation Status: Full Code Discharge Diet: As Tolerated Referrals: DESTINEE JIMÉNEZ MD [Primary Care Provider] - Follow up as needed CIRA MOROCHO MD [ACTIVE STAFF] - Home Medications: Aspirin [Ecotrin] 81 mg PO DAILY 06/03/17 Lovastatin [Altoprev] 40 mg PO DAILY 06/03/17 [place]-3 Fatty Acids/Fish Oil [Fish Oil 1,000 mg Capsule] 1 cap PO Q8 06/03/17 Omeprazole 20 mg PO DAILY 06/03/17 Spironolactone [Aldactone 25 mg Tablet] 25 mg PO Q12 06/03/17 Tamsulosin HCl [Flomax 0.4 mg Cap.sr] 0.4 mg PO QHS 06/03/17 Ezetimibe 10 mg PO DAILY 07/28/17 Allopurinol [Zyloprim 100 mg Tablet] 100 mg PO DAILY 10/01/19 Bupropion HCl [Bupropion Xl] 150 mg PO DAILY 10/01/19 Carvedilol [Coreg 12.5 mg Tablet] 12.5 mg PO DAILY 10/01/19 Donepezil HCl [Aricept 5 mg Tablet] 5 mg PO DAILY 10/01/19 Isosorbide Mononitrate [Ismo 20 mg Tablet] 20 mg PO Q8 10/01/19 History of Present Illiness History of Present Illness: RONI SEXTON is a 73 year old male with a past medical history of diastolic heart failure, hypertension and CKD 3. He presents with acute on chronic chest pain. He presents with 3 out of 5 intermittent dull left-sided chest pain occurring at rest not associated with radiation complications shortness of breath or nausea vomiting. Patient admits this same pain has occurred over the last 2 years it is temporarily alleviated by rubbing the left chest wall. He admits work-up of Cardiolite stress test twice over the last 2 years last being with Dr. Morocho within the last 12 months. He denies recent change in medication regiment he denies trauma, fall, muscle strain or uncontrolled acid reflux. 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 Morocho. Hospital Course Hospital Course: Patient was admitted for evaluation of chest pain. Notably at the time of admission patient's chest pain was reproducible. EKG was performed which showed no obvious new ischemic changes. Troponin was only minimally elevated but showed a flat trend when measured 3 times. Patient reports that he has had a stress test about a year ago which was negative. Last stress test on our record was in 2017 which was negative Lexiscan. Chest x-ray was normal. On my encounter today, patient described his initial chest pains as occurring in spurts and lasting about 60 seconds with each occurrence. This brevity of presentation is very unlikely for ACS or stable angina. Also currently patient is chest pain-free. As ACS has been ruled out and patient is currently chest pain-free, I am discharging patient in safe conditions with clear instructions to follow-up with Dr. Morocho and an appointment with Dr. Morocho for follow-up will be made. No changes were made to his medication regimen. Physical Exam Vital Signs: Temp Pulse Resp BP Pulse Ox 97.2 F 73 19 146/64 H 99 10/01/19 06:57 10/01/19 07:00 10/01/19 06:57 10/01/19 07:18 10/01/19 06:57 Intake & Output 09/30/19 10/01/19 10/02/19 06:59 06:59 06:59 Intake Total 120 Output Total 475 Balance -475 120 Weight 115 kg General appearance: PRESENT: no acute distress, cooperative Neck exam: ABSENT: JVD Respiratory exam: PRESENT: clear to auscultation tricia Cardiovascular exam: PRESENT: RRR, +S1, +S2. ABSENT: tachycardia Extremities exam: ABSENT: pedal edema Neurological exam: PRESENT: alert, awake, oriented to person, oriented to place, oriented to time Results Laboratory Results: WBC 6.4 10^3/uL (4.0-10.5) 09/30/19 20:53 RBC 5.25 10^6/uL (4.35-5.55) 09/30/19 20:53 Hgb 14.8 g/dL (13.5-17.0) 09/30/19 20:53 Hct 45.0 % (37.9-51.0) 09/30/19 20:53 MCV 86 fl (80-97) 09/30/19 20:53 MCH 28.2 pg (27.0-33.4) 09/30/19 20:53 MCHC 32.8 g/dL (32.0-36.0) 09/30/19 20:53 RDW 17.0 % (11.5-14.0) H 09/30/19 20:53 Plt Count 231 10^3/uL (150-450) 09/30/19 20:53 Lymph % (Auto) Not Reportable 09/30/19 20:53 [place] % (Auto) Not Reportable 09/30/19 20:53 Eos % (Auto) Not Reportable 09/30/19 20:53 Baso % (Auto) Not Reportable 09/30/19 20:53 Absolute Neuts (auto) Not Reportable 09/30/19 20:53 Absolute Lymphs (auto) Not Reportable 09/30/19 20:53 Absolute Monos (auto) Not Reportable 09/30/19 20:53 Absolute Eos (auto) Not Reportable 09/30/19 20:53 Absolute Basos (auto) Not Reportable 09/30/19 20:53 Total Counted 100 09/30/19 20:53 Seg Neutrophils % Not Reportable 09/30/19 20:53 Seg Neuts % (Manual) 45 % (42-78) 09/30/19 20:53 Band Neutrophils % 4 % (3-5) 09/30/19 20:53 Lymphocytes % (Manual) 36 % (13-45) 09/30/19 20:53 Monocytes % (Manual) 6 % (3-13) 09/30/19 20:53 Eosinophils % (Manual) 5 % (0-6) 09/30/19 20:53 Basophils % (Manual) 1 % (0-2) 09/30/19 20:53 Metamyelocytes % 2 % (0-1) H 09/30/19 20:53 Promyelocytes % 1 % (0) H 09/30/19 20:53 Abs Neuts (Manual) 3.3 10^3/uL (1.7-8.2) 09/30/19 20:53 Abs Lymphs (Manual) 2.3 10^3/uL (0.5-4.7) 09/30/19 20:53 Abs Monocytes (Manual) 0.4 10^3/uL (0.1-1.4) 09/30/19 20:53 Absolute Eos (Manual) 0.3 10^3/uL (0.0-0.6) 09/30/19 20:53 Abs Basophils (Manual) 0.1 10^3/uL (0.0-0.2) 09/30/19 20:53 Platelet Comment ADEQUATE 09/30/19 20:53 Polychromasia 1+ 09/30/19 20:53 Anisocytosis 1+ 09/30/19 20:53 Sodium 137.2 mmol/L (137-145) 09/30/19 21:20 Potassium 4.5 mmol/L (3.6-5.0) 09/30/19 21:20 Chloride 106 mmol/L (98-107) 09/30/19 21:20 Carbon Dioxide 23 mmol/L (22-30) 09/30/19 21:20 Anion Gap 8 (5-19) 09/30/19 21:20 BUN 25 mg/dL (7-20) H 09/30/19 21:20 Creatinine 1.45 mg/dL (0.52-1.25) H 09/30/19 21:20 Est GFR ( Amer) 58 (>60) L 09/30/19 21:20 Est GFR (Non-Af Amer) Cancelled 09/30/19 20:53 Est GFR (MDRD) Non-Af 48 (>60) L 09/30/19 21:20 Glucose 131 mg/dL (75-110) H 09/30/19 21:20 Calcium 9.5 mg/dL (8.4-10.2) 09/30/19 21:20 Total Bilirubin 0.2 mg/dL (0.2-1.3) 09/30/19 21:20 Direct Bilirubin 0.0 mg/dL (0.0-0.4) 09/30/19 21:20 Neonat Total Bilirubin Not Reportable 09/30/19 21:20 Neonat Direct Bilirubin Not Reportable 09/30/19 21:20 Neonat Indirect Bili Not Reportable 09/30/19 21:20 AST 24 U/L (17-59) 09/30/19 21:20 ALT 25 U/L (<50) 09/30/19 21:20 Alkaline Phosphatase 81 U/L (38-126) 09/30/19 21:20 Creatine Kinase 189 U/L (55-170) H 09/30/19 21:20 CK-MB (CK-2) 2.04 ng/mL (<4.55) 09/30/19 21:20 Troponin I 0.021 ng/mL 10/01/19 04:09 Total Protein 6.7 g/dL (6.3-8.2) 09/30/19 21:20 Albumin 3.5 g/dL (3.5-5.0) 09/30/19 21:20 EGFR Cancelled 09/30/19 20:53 09/30/19 09/30/19 10/01/19 20:53 21:20 00:16 CK-MB (CK-2) Cancelled 2.04 Troponin I Cancelled 0.014 0.019 10/01/19 04:09 CK-MB (CK-2) Troponin I 0.021 Impressions: Chest X-Ray 09/30/19 21:09 IMPRESSION: No obvious acute findings. Plan Time Spent: Less than 30 Minutes Stroke Is this a Stroke Patient?: No Acute Heart Failure - Is this a Heart Failure Patient?: No
--- NOTE | 2019-10-01 09:47 | EKG REPORT ---
SEVERITY:- ABNORMAL ECG - SINUS RHYTHM CONSIDER ANTERIOR INFARCT NONSPECIFIC T ABNORMALITIES, LATERAL LEADS : Confirmed by: Ankit Rubalcava MD 01-Oct-2019 09:46:35
[2019-10-01] MEDS ORDERED: FAMOTIDINE 20 MG TABLET PO SCH (10:00)
[2019-10-01] MEDS ORDERED: ATORVASTATIN CALCIUM 40 MG TABLET PO SCH (22:00)
== END 2019-10-01 10:22 | disposition home or self-care (01) ==
LOC: ER 20:46 → EH 10-01 00:06 → 3N 10-01 01:54
PROVIDERS: ADMIT Internal Medicine; ATTEND Internal Medicine
DX: R07.89 Other chest pain (principal); N18.3 Chronic kidney disease, stage 3 (moderate); I13.0 Hypertensive heart and chronic kidney disease with heart failure and stage 1 through stage 4 chronic kidney disease, or unspecified chronic kidney disease; I50.30 Unspecified diastolic (congestive) heart failure; K21.9 Gastro-esophageal reflux disease without esophagitis; E78.5 Hyperlipidemia, unspecified; G89.29 Other chronic pain; Z79.82 Long term (current) use of aspirin; Z79.899 Other long term (current) drug therapy; Z87.891 Personal history of nicotine dependence; Z82.49 Family history of ischemic heart disease and other diseases of the circulatory system; Z98.890 Other specified postprocedural states; Z23 Encounter for immunization
CPT/HCPCS: 99285; 36415 ×2; 82553; 82550; 85025; 80053; 84484 ×2; 71045; 90686; 93005; 93010; G0378 ×2; A9270 ×2

== ENCOUNTER → 2019-12-28 | Outpatient (CLI) | payer MEDICARE, MEDICAID ==
--- NOTE | 2019-12-28 12:51 | RADIOLOGY REPORT (SQ) ---
EXAM DESCRIPTION: U/S SCROTUM W/O DOPPLER IMAGES COMPLETED DATE/TIME: 12/28/2019 12:20 pm REASON FOR STUDY: (N50.89)OTHER SPECIFIED DISORDERS OF THE MALE GENITAL ORGANS N50.89 OTHER SPECIFI ED DISORDERS OF THE MALE GENITAL ORGANS COMPARISON: None. TECHNIQUE: Static and realtime rodríguez scale imaging of the scrotum and testes. Selected color Doppler and spectral images recorded to document blood flow. LIMITATIONS: None. FINDINGS: RIGHT: TESTICLE: The right testicle measures 3.0 x 2.5 x 1.8 cm, normal size. Normal echotexture. Normal b lood flow. No mass. EPIDIDYMIS: The head of the epididymis measures 1.0 x 1.4 x 0.6 cm. The epididymal tail appears to be in large and measures 3.5 mm. HYDROCELE OR VARICOCELE: Varicocele. HERNIA OR EXTRA-TESTICULAR MASS: No. OTHER: No other significant finding. LEFT: TESTICLE: The left testicle measures 3.4 x 2.4 x 2.0 cm, normal size. Normal echotexture. Normal bl ood flow. No mass. EPIDIDYMIS: The head of the epididymis measures 1.0 x 1.1 x 0.9 cm. The tail of the epididymis appe ars prominent in size. HYDROCELE OR VARICOCELE: Hydrocele measures 1.5 cm in AP diameter. HERNIA OR EXTRA-TESTICULAR MASS: No. OTHER: No other significant finding. IMPRESSION: 1. NO EVIDENCE OF TESTICULAR MASS OR TORSION. 2. Varicocele is noted on the right. 3. Hydrocele on the left. 4. The tail of the epididymis bilaterally appears prominent in size. TECHNICAL DOCUMENTATION: JOB ID: [id number] [employer]- All Rights Reserved Reading location - IP/workstation name: [email or web address]
== END ==
LOC: RAD 09:55
PROVIDERS: ATTEND Family Medicine Geriatric Medicine
DX: I86.1 Scrotal varices (principal); N43.3 Hydrocele, unspecified
CPT/HCPCS: 76870

== ENCOUNTER → 2019-12-28 | Outpatient (CLI) | payer MEDICARE, MEDICAID ==
[2019-12-28 12:44] LABS: ABSOLUTE BASOPHILS # (AUTO) 0.1 10^3/uL (0.0-0.2); ABSOLUTE EOSINOPHILS # (AUTO) 0.2 10^3/uL (0.0-0.6); ABSOLUTE LYMPHOCYTES (AUTO) 2.1 10^3/uL (0.5-4.7); ABSOLUTE MONOCYTES (AUTO) 0.4 10^3/uL (0.1-1.4); ABSOLUTE NEUT (AUTO) 4.5 10^3/uL (1.7-8.2); BASOPHILS % (AUTO) 1.2 % (0-2); EOSINOPHILS % (AUTO) 2.6 % (0-6); HEMOGLOBIN 16.2 g/dL (13.5-17.0); LYMPHOCYTES % (AUTO) 28.7 % (13-45); MEAN CORPUSCULAR HEMOGLOBIN 28.9 pg (27.0-33.4); MEAN CORPUSCULAR VOLUME 88 fl (80-97); MONOCYTES % (AUTO) 5.3 % (3-13); PLATELET COUNT 236 10^3/uL (150-450); RED BLOOD COUNT 5.59 10^6/uL (4.35-5.55); RED CELL DISTRIBUTION WIDTH 16.6 % (11.5-14.0); SEGMENTED NEUTROPHILS % (AUTO) 62.2 % (42-78); TOTAL CELLS COUNTED % (AUTO) 100 %; WHITE BLOOD COUNT 7.3 10^3/uL (4.0-10.5)
[2019-12-28 13:00] LABS: ALBUMIN 4.3 g/dL (3.5-5.0); ALKALINE PHOSPHATASE 107 U/L (38-126); ANION GAP 11 (5-19); ASPARTATE AMINO TRANSFERASE 30 U/L (17-59); BILIRUBIN,TOTAL 0.5 mg/dL (0.2-1.3); BLOOD UREA NITROGEN 32 mg/dL (7-20); CALCIUM 10.3 mg/dL (8.4-10.2); CARBON DIOXIDE 21 mmol/L (22-30); CHLORIDE 106 mmol/L (98-107); CHOLESTEROL 124.47 mg/dL (0-200); GLUCOSE 105 mg/dL (75-110); TRIGLYCERIDES 68 mg/dL (<150)
[2019-12-28 13:14] LABS: DIRECT LDL 61 mg/dL (<100)
[2019-12-29 10:36] LABS: CREATININE URINE 125.5 mg/dL (Not Estab.); MICROALBUMIN URINE 51.5 ug/mL (Not Estab.)
== END ==
LOC: OD 11:54
PROVIDERS: ATTEND Family Medicine Geriatric Medicine
DX: E11.21 Type 2 diabetes mellitus with diabetic nephropathy (principal); I10 Essential (primary) hypertension; E78.5 Hyperlipidemia, unspecified; I25.10 Atherosclerotic heart disease of native coronary artery without angina pectoris; Z79.899 Other long term (current) drug therapy
CPT/HCPCS: 36415; 80053; 80061; 82043; 82570; 83036; 85025